=== PATIENT | male | born 1970 | race Caucasian/White ===

== ENCOUNTER 2023-02-06 21:41 | Emergency (ER) | payer BC, SELFPAY ==
[2023-02-06 21:47] VITALS: BP 147/107; PULSE 81; RESP 18; TEMP 36.8; O2SAT 93; BMI 33.5
--- NOTE | 2023-02-06 22:50 | ED_ITS ---
HPI - Chest Pain General Chief Complaint: Chest Pain Stated Complaint: CHEST PAIN Time Seen by Provider: 02/06/23 22:33 Source: patient Mode of arrival: walk-in Limitations: no limitations History of Present Illness HPI narrative: chest pain on and off for the past 5 weeks. xiphoid pain into left chest and into his back. can last up to 30 minutes. Can occur at rest. Does smoke cigarettes. Describes it like a sharp knife going thru. states pain again tonight but now it has resolved and he is asymptomatic Risk Factors Coronary artery disease risk factors: smoking history Related Data Home Medications Medication Instructions Recorded Confirmed No Known Home Medications 02/06/23 02/06/23 Allergies Allergy/AdvReac Type Severity Reaction Status Date / Time No Known Drug Allergies Allergy Verified 02/06/23 21:47 Review of Systems ROS Status of ROS 10 or more systems reviewed and unremarkable except as noted in history and below Cardiovascular Reports: chest pain Exam Constitutional Vital Signs, click to edit/add: Last Vital Signs Temp 98.2 F 02/06/23 21:47 Pulse 81 02/06/23 21:47 Resp 18 02/06/23 21:47 BP 147/107 H 02/06/23 21:47 Pulse Ox 93 L 02/06/23 21:47 O2 Del Method Room Air 02/06/23 21:47 Common normals: no apparent distress, average body habitus, oriented x3 and healthy appearing HENMT Common normals: normocephalic and head/scalp atraumatic Respiratory Common normals: normal respiratory effort and no use of accessory muscles Cardio Common normals: regular rate, regular rhythm, S1 normal heart sound and S2 normal heart sound GI Common normals: Normal to inspection, nondistended, normoactive bowel sounds present, soft to palpation and non-tender Extremity Common normals: normal to inspection, full ROM, normal capillary refill and no joint enlargement Neuro Common normals: oriented x3, CN's II-XII intact bilaterally, moves all e xtremities, no focal motor deficits and no sensory deficits noted Psych Appearance: grossly normal Course Vital Signs Vital signs: Vital Signs Temperature 98.2 F 02/06/23 21:47 Pulse Rate 81 02/06/23 21:47 Respiratory Rate 18 02/06/23 21:47 Blood Pressure 147/107 H 02/06/23 21:47 Pulse Oximetry 93 L 02/06/23 21:47 Oxygen Delivery Method Room Air 02/06/23 21:47 Temperature 98.2 F 02/06/23 21:47 Pulse Rate 81 02/06/23 21:47 Respiratory Rate 18 02/06/23 21:47 Blood Pressure 147/107 H 02/06/23 21:47 Pulse Oximetry 93 L 02/06/23 21:47 Oxygen Delivery Method Room Air 02/06/23 21:47 MDM - Chest Pain MDM Narrative Medical decision making narrative: patient presents with recurrent chest pain over the past 5 weeks. Pain concerning for angina. workup in the ER neg. Patient informed of my concern and recommendation for admission but he refused despite risk of MT. He did stay for 2nd troponin that was normal. Discharged home to follow up with his doctor Lab Data Labs: Lab Results 02/06/23 02/07/23 Range/Units 23:10 01:05 WBC 8.7 (4.0-11.0) 10^3/uL RBC 4.80 (4.70-6.10) 10^6/uL Hgb 16.4 (14.0-18.0) g/dL Hct 46.5 (42.0-54.0) % MCV 96.9 H (80.0-94.0) fL MCH 34.2 H (25.9-34.0) pg MCHC 35.3 H (29.9-35.2) g/dL RDW 11.9 (11.0-15.0) % Plt Count 209 (150-450) 10^3/uL MPV 9.5 (9.5-13.5) fL Neut % (Auto) 54.5 (43.0-75.0) % Lymph % (Auto) 32.4 (20.5-60.0) % [place] % (Auto) 9.9 (1.7-12.0) % Eos % (Auto) 2.0 (0.9-7.0) % Baso % (Auto) 0.9 (0.2-2.0) % Neut # (Auto) 4.7 (1.4-6.5) 10^3/uL Lymph # (Auto) 2.8 (1.2-3.8) 10^3/uL [place] # (Auto) 0.9 H (0.3-0.8) 10^3/uL Eos # (Auto) 0.2 (0.0-0.7) 10^3/uL Baso # (Auto) 0.1 (0.0-0.1) 10^3/uL Abs Immat Gran (auto) 0.03 (0.00-0.03) 10^3/uL Imm/Tot Granulo (auto) 0.3 (0.0-0.5) % D-Dimer <0.19 (<=0.59) mg/L FEU Sodium 137 (136-145) mmol/L Potassium 3.6 (3.5-5.1) mmol/L Chloride 102 (98-107) mmol/L Carbon Dioxide 25.3 (21.0-32.0) mmol/L Anion Gap 13.3 BUN 15.0 (7.0-18.0) mg/dL Creatinine 1.10 (0.70-1.30) mg/dL Est GFR ( Amer) >60 (>=60) Est GFR (Non-Af Amer) >60 (>=60) BUN/Creatinine Ratio 13.6 Glucose 92 (74-106) mg/dL Calcium 8.8 (8.5-10.1) mg/dL Total Bilirubin 0.5 (0.2-1.0) mg/dL AST 21 (15-37) U/L ALT 49 (16-63) U/L Alkaline Phosphatase 73 (46-116) U/L Troponin I High Sens 6.6 6.3 (4.0-76.1) pg/mL NT-Pro-B Natriuret Pep 39.0 (<=900.0) pg/mL Total Protein 6.8 (6.4-8.2) g/dL Albumin 3.9 (3.4-5.0) g/dL Globulin 2.9 g/dL Albumin/Globulin Ratio 1.3 Lipase 243.0 (73.0-393.0) U/L Discharge Plan Discharge Chief Complaint: Chest Pain Clinical Impression: Chest pain Patient Disposition: Home, Self-Care Prescriptions / Home Meds: No Action No Known Home Medications Instructions: Chest Pain (ED) Additional Instructions: follow up with your family doctor next week Stand Alone Forms: Portal Instructions Referrals: MATTHEW RICCI [Primary Care Provider] - 1 week
--- NOTE | 2023-02-06 22:53 | XR_ITS ---
The [address] [address] Patient Name: SHANE GONZALEZ MRN: [id number] date: 1970 Sex: M Assigned Patient Location: ER Current Patient Location: ER Accession/Order Number: [id number] Exam Date: 02/06/2023 23:10 Report Date: 02/06/2023 23:50 At the request of: DAVID BOWSER Procedure: XR chest 1V EXAM: XR chest 1V HISTORY: chest pain COMPARISON: None. TECHNIQUE: AP view of the chest. FINDINGS: There is no focal airspace consolidation. The cardiomediastinal silhouette is not enlarged. No evidence of pleural effusion or pneumothorax are identified. No acute osseous abnormality. XR/XR chest 1V IMPRESSION: No acute cardiopulmonary process. Electronically authenticated by: JOCELIN GOMES Date: 02/06/2023 23:50
--- NOTE | 2023-02-06 22:53 | ECG_ITS ---
The [facility] Test Date: 2023-02-06 Pat Name: SHANE GONZALEZ Department: Room: - Gender: Male Manager Clinical Services: : 1970 Requested By: MATTHEW RICCI Order Number: [id number] Reading MD: BECCA BEASLEY Measurements Intervals [employer] Rate: 78 P: 25 IL: 142 QRS: 6 QRSD: 100 T: 34 QT: 384 QTc: 417 Interpretive Statements 1100 Sinus rhythm 9110 normal ECG No previous ECG available for comparison Electronically Signed On 02-07-2023 14:35:08 EDT by BECCA BEASLEY
[2023-02-06 23:25] LABS: Basophils Absolute Auto 0.1 10^3/uL (0.0-0.1); Basophils Percent Auto 0.9 % (0.2-2.0); Eosinophils Absolute Auto 0.2 10^3/uL (0.0-0.7); Hematocrit 46.5 % (42.0-54.0); Hemoglobin 16.4 g/dL (14.0-18.0); Immature Granulocytes Abs Auto 0.03 10^3/uL (0.00-0.03); Immature Granulocytes Pct Auto 0.3 % (0.0-0.5); Lymphocytes Absolute Auto 2.8 10^3/uL (1.2-3.8); Lymphocytes Percent Auto 32.4 % (20.5-60.0); Mean Corpuscular HGB Conc 35.3 g/dL (29.9-35.2); Mean Corpuscular Hemoglobin 34.2 pg (25.9-34.0); Mean Corpuscular Volume 96.9 fL (80.0-94.0); Mean Platelet Volume 9.5 fL (9.5-13.5); Monocytes Absolute Auto 0.9 10^3/uL (0.3-0.8); Monocytes Percent Auto 9.9 % (1.7-12.0); Neutrophils Absolute Auto 4.7 10^3/uL (1.4-6.5); Neutrophils Percent Auto 54.5 % (43.0-75.0); Platelet Count 209 10^3/uL (150-450); Red Cell Distribution Width 11.9 % (11.0-15.0); White Blood Count 8.7 10^3/uL (4.0-11.0)
[2023-02-06 23:49] LABS: Alanine Aminotransferase 49 U/L (16-63); Albumin Globulin Ratio 1.3; Albumin Level 3.9 g/dL (3.4-5.0); Alkaline Phosphatase 73 U/L (46-116); Anion Gap 13.3; Aspartate Amino Transferase 21 U/L (15-37); BUN Creatinine Ratio 13.6; Bilirubin Total 0.5 mg/dL (0.2-1.0); Calcium 8.8 mg/dL (8.5-10.1); Carbon Dioxide 25.3 mmol/L (21.0-32.0); Chloride 102 mmol/L (98-107); Estimated GFR (African America >60 (>=60); Estimated GFR (Non-African Ame >60 (>=60); Globulin 2.9 g/dL; Glucose 92 mg/dL (74-106); Potassium 3.6 mmol/L (3.5-5.1); Sodium 137 mmol/L (136-145); Total Protein 6.8 g/dL (6.4-8.2); Troponin I High Sensitivity 6.6 pg/mL (4.0-76.1)
[2023-02-07 00:18] LABS: D Dimer <0.19 mg/L FEU (<=0.59)
[2023-02-07 01:46] LABS: Troponin I High Sensitivity 6.3 pg/mL (4.0-76.1)
== END 2023-02-07 02:23 | disposition home or self-care (01) ==
PROVIDERS: Emergency Provider Internal Medicine; PCP Family Medicine
DX: R07.9 Chest pain, unspecified (principal); F17.210 Nicotine dependence, cigarettes, uncomplicated
CPT/HCPCS: 36415; 71045; 80053; 83690; 83880; 84484; 85025; 85378; 93005; 99285

== ENCOUNTER 2024-04-26 08:23 | Outpatient (OUT) | payer BC, SELFPAY ==
--- NOTE | 2024-04-26 | XR_ITS ---
The [address] [address] Patient Name: SHANE GONZALEZ MRN: [id number] date: 1970 Sex: M Assigned Patient Location: Current Patient Location: Accession/Order Number: [id number] Exam Date: 04/26/2024 08:34 Report Date: 04/26/2024 10:15 At the request of: DAYNE KIM Procedure: XR foot LANDON min 3V EXAMINATION: XR foot LANDON min 3V HISTORY: BILATERAL FOOT PAIN COMPARISON: No relevant comparison available. FINDINGS: RIGHT FINDINGS: BONES: Partial flattening of the plantar arch. No acute fracture or dislocation. Moderate calcaneal plantar enthesopathic spurring SOFT TISSUES: Negative. No visible soft tissue swelling. OTHER: Negative. LEFT FINDINGS: BONES: Partial flattening of the plantar arch. No acute fracture or dislocation. Moderate calcaneal plantar enthesopathic spurring SOFT TISSUES: Negative. No visible soft tissue swelling. OTHER: Negative. XR/XR foot LANDON min 3V IMPRESSION: Partial flattening of the plantar arch with degenerative change Electronically authenticated by: ELO COYLE Date: 04/26/2024 10:15
== END 2024-04-26 08:24 | disposition home or self-care (01) ==
LOC: EC 08:24
PROVIDERS: PCP Family Medicine; Visit Provider Podiatrist Foot & Ankle Surgery
DX: M79.672 Pain in left foot (principal); M79.671 Pain in right foot
CPT/HCPCS: 73630

== ENCOUNTER 2024-06-03 20:54 | Emergency (ER) | payer BC, SELFPAY ==
[2024-06-03 20:57] VITALS: BP 161/108; PULSE 96; TEMP 36.6; O2SAT 98; BMI 36.5
--- NOTE | 2024-06-03 21:09 | XR_ITS ---
The [address] [address] Patient Name: SHANE GONZALEZ MRN: [facility]:[id number] date: 1970 Sex: M Assigned Patient Location: ER Current Patient Location: ER Accession/Order Number: [id number] Exam Date: 06/03/2024 09:35 Report Date: 06/03/2024 23:40 At the request of: AVA CHAMBERS Procedure: XR knee LANDON 3V HISTORY: fall COMPARISON: There are no previous studies available for comparison. TECHNIQUE: 3 views of the bilateral knees. FINDINGS: BONE DENSITY: Normal. JOINTS: No acute abnormality. 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 FRACTURE: No acute fracture. DISLOCATION: None. SOFT TISSUES: No radiopaque foreign body. XR/XR knee LANDON 3V IMPRESSION: No acute osseous or joint abnormality. Electronically authenticated by: PAOLA ALVAREZ Date: 06/03/2024 23:40
--- NOTE | 2024-06-03 21:09 | XR_ITS ---
The [address] [address] Patient Name: SHANE GONZALEZ MRN: [facility]:[id number] date: 1970 Sex: M Assigned Patient Location: ER Current Patient Location: ER Accession/Order Number: [id number] Exam Date: 06/03/2024 09:35 Report Date: 06/03/2024 23:37 At the request of: AVA CHAMBERS Procedure: XR foot LANDON min 3V HISTORY: fall COMPARISON: 04/26/2024. TECHNIQUE: 3 views of the bilateral feet. FINDINGS: BONE DENSITY: Normal. Bilateral plantar calcaneal spurs. JOINTS: No acute abnormality. FRACTURE: No acute fracture. DISLOCATION: None. SOFT TISSUES: No radiopaque foreign body. XR/XR foot LANDON min 3V IMPRESSION: No acute osseous or joint abnormality. Electronically authenticated by: PAOAL ALVAREZ Date: 06/03/2024 23:37
--- NOTE | 2024-06-03 21:09 | XR_ITS ---
The [place] [id number] Patient Name: SHANE GONZALEZ MRN: [facility]:[id number] date: 1970 Sex: M Assigned Patient Location: ER Current Patient Location: ER Accession/Order Number: [id number] Exam Date: 06/03/2024 09:35 Report Date: 06/03/2024 23:38 At the request of: AVA CHAMBERS Procedure: XR lumbar spine 2-3V LUMBAR X-RAY. HISTORY: fall COMPARISON: None. TECHNIQUE: 3 views radiograph of the lumbar spine. FINDINGS: No acute vertebral body compression fracture. There is mild multilevel degenerative spondylosis. Maintained lumbar lordosis. There is grade 1 retrolisthesis at L4-5 without obvious spondylolysis. XR/XR lumbar spine 2-3V IMPRESSION: No acute abnormality of the lumbar spine. Electronically authenticated by: PAOLA ALVAREZ Date: 06/03/2024 23:38
--- NOTE | 2024-06-03 21:10 | XR_ITS ---
The [address] [address] Patient Name: SHANE GONZALEZ MRN: [id number] date: 1970 Sex: M Assigned Patient Location: ER Current Patient Location: ER Accession/Order Number: [id number] Exam Date: 06/03/2024 09:35 Report Date: 06/03/2024 23:35 At the request of: AVA CHAMBERS Procedure: XR ankle LANDON min 3V HISTORY: pain COMPARISON: There are no previous studies available for comparison. TECHNIQUE: 3 views of the bilateral ankle. FINDINGS: BONE DENSITY: Normal. Bilateral plantar calcaneal spur. JOINTS: No acute abnormality. FRACTURE: No acute fracture. DISLOCATION: None. SOFT TISSUES: No radiopaque foreign body. XR/XR ankle LANDON min 3V IMPRESSION: No acute osseous or joint abnormality. Electronically authenticated by: PAOLA ALVAREZ Date: 06/03/2024 23:35
--- OUTSIDE RECORDS SUMMARY | 2024-06-03 21:13 | XMS_ITS | CCD ---
Author Organization [facility] Inform ion Partnership [facility] Care Team Providers Care Professor Of Exercise Science Name Role Phone Romy Connors Attending Unavailable SHANON PADRON Attending Unavailable DAYNE PARDO Referring Unavailable Unavailable Primary Care Provider Unavaillina overton Problems Problem Classification Problem Date Documented Da te Episodic/Chronic Other connective tissue disease (1 source) Pain in left foot; Translations: [Pain in left foot] 05-03-2024 Episodic Other connective tissue disease (1 source) Pain in right foot; Translations: [Pain in right foot] 05-03-2024 Episodic Results Test Name Value Interpretation Reference Range [facility] Lab - Toxicology Resultson 1 08-02-2018 Lab - Toxicology Results [id number] [facility] Encounters Encounter Date Encounter Type Care Provider Facility Start: 05-03-2024 End: 05-03-2024 ambulatory SHANON PADRON [facility] Comment on above: Left foot pain (Prim jeremy Dx); Right foot pain Start: 05-03-2024 End: 05-03-2024 Bamboo flowsheet Shanon Padron PT Work Phone: [facility] Start: 05-03-2024 End: 05-03-2024 Bamboo flowsheet Shanon Padron PT Work Phone: [facility] Start: 12-05-2022 ambulatory Romy Connors Facili ty:[facility] Plan of Treatment Date Care Activity Detail Author Start: 05-05-2024 End: 05-05-2024 ambulatory 05/05/2024 5:30 PM EDT Treat ment [facility] [address] [place] [address] Shanon Padron, PT [address] [place] [address] [facility] Start: 05-03-2024 End: 05-03-2024 ambulatory 05/03/2024 5:30 PM EDT Evalu ation [facility] [address] [place] [id number] Shanon Padron, PT [address] [place] [address] Arrived [facility] Comment on above: Arrived Payers Date Payer Category Payer Unknown BCBS BCBS [id number] 2022-Present [phone] [address] [place] [address] [id number] 2022 Unknown [id number] 1970 Unknown [id number] 1970 Unknown [id number] Unknown [id number] Social History Date Type Detail Facility Tobacco smoking stat [facility] Tobacco smoking consumption unknown [facility] Healthcare Start: 1970 Sex assigned at Not on file [facility] Gender identity Not on file [facility] are History of Present illness Narrative 05-03-2024 Shanon Padron, PT - 05/03/2024 5:30 PM EDT Note Date & Type Note Facility 05-03-2024 History of Presen t illness Narrative Physical Therapy Physical Therapy Evaluation Visit Patient Name: Vishal Hazel Today's Date: 05/03/2024 Reason: Left > Right foot pain Visit number: 1 Subjective: Interim History: Vishal is a 53 yo male that presents today with left>right foot pain. Onset ~6 weeks prior. No specific DANE. Left side was much worse. Recently was to the point he had severe pain with any amount of weightbearing through the left heel. Radiograph showed small spurs per report. Treatment has included prednisone, and anti-inflammatory which have improved symptoms ~85% so far. He is pleased with this. Has also been complaint with new orthotic (power step), and HEP from Dr Pardo. Pain: Pain is through the left mid substance of longitudinal arch, along the 5th metatarsal, and achilles insertion. Same on the right but much more mild. 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 Precautions: as tolerated Objective: ANKLE AROM: B ankles normal all planes Strength: B ankles 5/5 MMT globally Muscle length: Decreased gastroc, soleus, HS bilaterally Palpation: TTP left achilles insertion, longitudinal arch Functional: Gait is normal Treatment: Education: HEP education with demonstration, Educated on Eval Findings and POC Manual Therapy: STM, IASTM, cupping, dry needling Therapeutic Exercise: flexibility of calf/HS/hips, strength Aquatic Therapy: if needed Neuromuscular re-education: balance Modalities: estim, heat, ice Today: IE; ther ex for HEP including HS 90-90, wall HS stretch, hip ER stretch, standing calf stretch. Advised to continue stretches daily. Given he is doing well with the medications, inserts, and HEP =he will try to self manage. Return to PT within 30 days if symptoms return. Assessment: Goal 1: Pt will report >95% improvement in current symptoms. Goal 2: Pt will demo normal gait, no pain Goal 3: Pt will have no TTP B achilles insertion Pt will benefit from skilled PT to address the above impairments for 2x/week for 4-6 weeks. Will hold PT with current HEP unless symptoms worsen, he can return within 30 days. I hereby deem this POC medically necessary. Please sign below. Date: documented in this encounter [facility] Evaluation note Note Date & Type Note Facility Evaluation note Diagnosis Left foot pain- Primary Pain in soft tissues of limb Right foot pain Pain in soft tissues of limb documented in this encounter [facility] Summary Purpose Family History No Family History Records FoundNo Family History Records FoundNo Family History Records Found Advance Directives No Advanced Directives Records FoundNo Advanced Directives Records FoundNo Advanced Directives Records Found Additional Source Comments (unrecognized sect ion and content) No Status Records FoundNo Status Records FoundNo Status Records Found INFORMATION SOURCE (unrecogn ized section and content) DATE CREATED AUTHOR 06/02/2019 [facility] DATE CREATED AUTHOR AUTHOR'S ORGANIZ ATION 12/03/2022 [facility] DATE CREATED AUTHOR AUTHOR'S ORGANIZ ATION 05/05/2024 [facility] EPIC Reason for Visit (unrecogniz ed section and content) Specialty Diagnoses / Procedures Referred By Joelle pedraza Referred To Contact Physical Therapy Diagnoses Metatarsalgia, left foot Procedures IA PHYS THERAPY EVALUATION Dayne Pardo MD [address] [place] [address] [place] [address] Arie Xiao, FACUNDO Referral ID Status Reason Start Date Expiration Date V isits Requested Visits Authorized [id number] Authorized 04/26/2024 10/23/2024 99 99 FOR RECORDS PERTAINING TO PATIENTS WHO ARE OR HAVE BEEN ENROLLED IN A CHEMICAL DEPENDENCY/SUBSTANCEABUSE PROGRAM, SOME INFORMATION MAY BE OMITTED. This clinical summary was aggregated from multiple sources. Caution should be exercised in using it in the provision of clinical care. This summary normalizes information from multiple sources, and as a consequence, information in this document may materially change the coding, format and clinical context of patient data. In addition, data may be omitted in some cases. CLINICAL DECISIONS SHOULD BE BASED ON THE PRIMARY CLINICAL RECORDS. [facility]. provides no warranty or guarantee of the accuracy or completeness of information in this document.
--- NOTE | 2024-06-03 22:04 | ED.FALL1 ---
HPI HPI - Fall General Chief Complaint: Fall Stated Complaint: LEG PAIN, FELL OUT OF TREE STAND Time Seen by Provider: 06/03/24 21:09 Source: patient Mode of arrival: walk-in Limitations: no limitations History of Present Illness HPI Narrative: fell from tree stand. States tree stand 12-14 ft up. States strap broke . He was standing and landed on his heels. Able to get up and sat in chair while continuing to leija. Accident occurred about 5 hours ago. Denies any back or hip pain. Complains of pain of his heels, ankles and knees. Demonstrates full extension and flexing of his knees but more uncomfortable with the right knee. No injury to back , neck or head. Related Data Home Medications ?Medication ?Instructions ?Recorded ?Confirmed meloxicam 15 mg tablet 15 mg PO DAILY 06/03/24 06/03/24 Allergies Allergy/AdvReac Type Severity Reaction Status Date / Time No Known Drug Allergies Allergy Verified 06/03/24 21:05 Opioid HPI Opioid Management Most Recent Pain and Opioid Data: No Data to Display Review of Systems ROS Status of ROS 10 or more systems reviewed and unremarkable except as noted in history and below PFSH PFSH Social History Little interest or pleasure in doing things: not at all Feeling down, depressed, or hopeless: not at all Exam Constitutional Vital Signs, click to edit/add: Last Vital Signs Temp 98 F 06/03/24 20:57 Pulse 92 H 06/03/24 23:20 Resp 18 06/03/24 20:57 BP 132/93 H 06/03/24 23:20 Pulse Ox 96 06/03/24 23:20 O2 Del Method Room Air 06/03/24 20:57 Common normals: no apparent distress, average body habitus, oriented x3, no limitations, healthy appearing, alert and well nourished [facility] Common normals: normocephalic and head/scalp atraumatic Chest Common normals: inspection of chest normal and palpation of chest normal Respiratory Common normals: normal respiratory effort, no retractions, no use of accessory muscles and clear to auscultation bilaterally Cardio Common normals: regular rate, regular rhythm, S1 normal heart sound and S2 normal heart sound GI Common normals: Normal to inspection, nondistended, normoactive bowel sounds present and soft to palpation Back & Pelvis Common normals: thoracic and lumbar spine normal to inspection and no thoracic nor lumbar tenderness Extremity Other: no gross abnormality of his knees. mild effusion right knee. No deformity of ankles or feet Neuro Common normals: oriented x3, CN's II-XII intact bilaterally, moves all extremities and no focal motor deficits Psych Appearance: grossly normal Course Vital Signs Vital signs: Vital Signs Temperature 98 F 06/03/24 20:57 Pulse Rate 96 H 06/03/24 20:57 Respiratory Rate 18 06/03/24 20:57 Blood Pressure 161/108 H 06/03/24 20:57 Pulse Oximetry 98 06/03/24 20:57 Oxygen Delivery Method Room Air 06/03/24 20:57 Temperature 98 F 06/03/24 20:57 Pulse Rate 92 H 06/03/24 23:20 Respiratory Rate 18 06/03/24 20:57 Blood Pressure 132/93 H 06/03/24 23:20 Pulse Oximetry 96 06/03/24 23:20 Oxygen Delivery Method Room Air 06/03/24 20:57 MDM - Fall MDM Narrative Medical decision making narrative: patient fell out of a tree stand. he was standing when the strap broke and he landed on his heels. Fell 12-14 feet. complained of heel, ankle and knee pain. No deformity of any of his joints and mild effusion right knee. xrays all neg. Patient informed of the xray results and working diagnosis . given dose of prednisone and discharged home Imaging Data Chest x-ray: Radiologist's impression: ITS Impressions Foot X-Ray 06/03/24 21:09 IMPRESSION: No acute osseous or joint abnormality. Electronically authenticated by: PAOLA ALVAREZ Date: 06/03/2024 23:37 Knee X-Ray 06/03/24 21:09 IMPRESSION: No acute osseous or joint abnormality. Electronically authenticated by: PAOLA ALVAREZ Date: 06/03/2024 23:40 Lumbar Spine X-Ray 06/03/24 21:09 IMPRESSION: No acute abnormality of the lumbar spine. Electronically authenticated by: PAOLA ALVAREZ Date: 06/03/2024 23:38 Ankle X-Ray 06/03/24 21:10 IMPRESSION: No acute osseous or joint abnormality. Electronically authenticated by: PAOLA ALVAREZ Date: 06/03/2024 23:35 Discharge Plan Discharge Chief Complaint: Fall Clinical Impression: Contusion of foot or heel, Ankle strain, Knee strain Patient Disposition: Home, Self-Care Prescriptions / Home Meds: No Action meloxicam 15 mg tablet 15 mg PO DAILY Print Language: Zambian Instructions: Foot Contusion (ED), Ankle Strain (ED) Additional Instructions: follow up with your doctor next week for recheck. Continue mobic for pain Referrals: MATTHEW RICCI [Primary Care Provider] - 1 week
[2024-06-03 23:20] VITALS: BP 132/93; PULSE 92; O2SAT 96
[2024-06-04] MEDS: PREDNISONE 20 MG TABLET 40 MG PO (00:11)
[2024-06-04] MEDS: HYDROCODONE/ACET 5-325 MG TABLET 2 TAB PO (00:31)
== END 2024-06-04 00:34 | disposition home or self-care (01) ==
PROVIDERS: Emergency Provider Internal Medicine; PCP Family Medicine
DX: S86.911A Strain of unspecified muscle(s) and tendon(s) at lower leg level, right leg, initial encounter (principal); S96.912A Strain of unspecified muscle and tendon at ankle and foot level, left foot, initial encounter; S96.911A Strain of unspecified muscle and tendon at ankle and foot level, right foot, initial encounter; S90.32XA Contusion of left foot, initial encounter; S90.31XA Contusion of right foot, initial encounter; W17.89XA Other fall from one level to another, initial encounter
CPT/HCPCS: 72100; 73562; 73610; 73630; 99283; J7512

== ENCOUNTER 2025-07-08 09:48 | Outpatient (OUT) | payer SELFPAY ==
--- OUTSIDE RECORDS SUMMARY | 2025-06-28 16:00 | XMS_ITS | Encounter Summary ---
Author Organization [facility] Address [address] [place] [address] Care Team Providers Care Representative Name Role Phone Dirk Jeffers DO Primary Care Provider [phone] Reason for Visit * Consultation (Stat) - ClosedSpecialtyDiagnoses / ProceduresReferred By Contact Referred To ContactPhysical Therapy Diagnoses Primary osteoarthritis of left hip Procedures [place] OFFICE/OUTPATIENT NEW HIGH MDM 60 MINUTES Jan Park DO [address] [place] [address] Phone: tel: fax: Nathalie Ybarra PT Referral IDStatusReasonStart DateExpiration DateVisits RequestedVisits [id number] Specialty Services Required / Encounter Details DateTypeDepartmentCare Team (Latest Contact Info)Gankfdypoof18/03/2025 4:00 PM ESTEvaluation [facility] [address] [facility] [address] [place] [id number] Nathalie Ybarra PT Arthritis of left hip (Primary Dx) Social History Tobacco UseTypesPacks/DayYears UsedDateSmoking Tobacco: NeverSmokeless Tobacco: CurrentChewAlcohol UseStandard Drinks/WeekCommentsYes0 (1 standard drink = 0.6 oz pure alcohol)Sex and Gender InformationValueDate RecordedSex Assigned at BirthNot on fileLegal QziEyxk9110/08/2022 6:42 PM EDTGender IdentityNot on file Sexual OrientationNot on filedocumented as of this encounter Progress Notes * Nathalie Ybarra, PT - 06/28/2025 4:00 PM EST Images from the original note were not included. Physical Therapy Physical Therapy Evaluation Visit Patient Name: Vishal Hazel Today's Date: 06/28/2025 Reason: Prehab prior to left Total Hip Arthroplasty on 07/11/25. Visit number: 1 Subjective Interim History: Vishal Hazel is a 54 y.o. male that presents today for prehab prior to left Total Hip Arthroplasty scheduled for 07/11/25. he has had ongoing pain and has elected to proceed withTHA. Imaging: Radiograph indicates severe OA of left hip. Prior Level of Function: Lives in a 2 story home with 0 JAVIER. Currently has walker at home. Precautions: posterior hip precautions Objective: left Hip ROM: Flexion- 92 degrees Abduction- 37 degrees Gait: ambulates independently with wide KEKE Treatment: Therapeutic Exercise: x4 minutes review of pre- and post-op therapeutic exercise and their purpose including improved blood flow, muscle activation, ROM, and strength. Education: Educated pt on STACEY precautions, proper leg elevation technique. Educated on s/s of bloodclots, DVT. Educated on the importance of rest/ice in the immediate post op stage to promote tissuehealing. Educated on potential buckling of knee post op and to be cautious with each step and use FWW as prescribed. Gait Training: x10 minutes of gait training including education and practice using a FWW and SPC onflat ground, and stairs as appropriate to prepare for home navigation post op. Eductaed pt how to fit walker to proper height. Assessment: Goal 1: Patient will demo proper gait with proper assistive device for post op mobility. - MET Goal 2: Patient will report no further questions regarding post op mobility, safe home negotiation,or PT plan. -MET Goal 3: Pt will verbalize and demo understanding of STACEY precautions. - MET Pt will be discharged following today's 1x visit. Met goals. does not need a FWW for post op gait, mobility. I hereby deem this POC medically necessary. Please sign below. __ Date: documented in this encounter Plan of Treatment DateTypeDepartmentCare Team (Latest Contact Info)Hgwhepkfjcy86/12/2026 10:45 AM ESTOffice Visit [facility] [address] [place] [phone] Jan Park DO [address] [place] [address] documented as of this encounter Visit Diagnoses Diagnosis Arthritis of left hip- Primary documented in this encounter Care Teams Team MemberRelationshipSpecialtyStart DateEnd Date Dirk Jeffers DO [address] [facility] [place] [phone] PCP - GeneralInternal Medicine03/06/25documented as of this encounter
--- OUTSIDE RECORDS SUMMARY | 2025-07-07 05:22 | XMS_ITS | Continuity of Care Document ---
Author Organization [facility] Address [address] [place] [address] Phone Care Team Providers Care Cabinetmaker Maintenance Name Role Phone Dirk Jeffers DO Primary Care Provider Dirk Jeffers DO Attending Provider [phone] Care Teams Patient Care Team Team Status: Active Member Role/Relationship Status Dates Dirk Jeffers DO Primary Care Provider Active Patient Care Team Team Status: Inactive Member Role/Relationship Status Dates Dirk Jeffers DO Primary Care Provider Active Start: July 07, 2025 End: July 07enjaamber Jeffers DOAttending ProviderActiveStart: July 07, 2025 End: July 07, 2025 Chief Complaint and Reason for Visit Chief Complaint Admit Date Wellness July 07, 2025 9:33am Reason for Visit Admit Date DEANNA (generalized anxiety disorder) Decem 2024 9:33am Hypercholesterolemia July 07, 2025 9:33am Lumbar spondylosis July 07, 2025 9:33am Nicotine addiction July 07, 2025 9:33am Primary osteoarthritis of left hip Decem 2024 9:33am Screening PSA (prostate specific antigen ) July 07, 2025 9:33am Wellness examination July 07, 2025 9:33am Allergies, Adverse Reactions, Alerts Allergen Type Severity Reaction Last Updated Verified Status No Known Allergies Allergy Unknown July 07, 2025 9:42amYesActive Social History Smoking Status Status Start Date End Date Date of Observa tion Ex-smoker (finding) March 03, 2025 2:30pm Observation Status Observation Response Date of Response Legal Sex Male (finding) Sex Assigned At BirthMaleDmb1969 Family History Relationship Condition Age at Onset Recorded Date/T rohith Not Specified Malignant neoplasm Unknown motherHeart diseaseUnknownDiabetes mellitusUnknownfatherMalignant neoplasm of colonUnknown Problems Active Problems Problem Diagnosis/Recorded Date Onset Date Status C omments Nicotine addiction July 04, 2025 7:20am Unknown Ac tive DEANNA (generalized anxiety disorder)June 29, 2024 10:24pmUnknownActive Screening PSA (prostate specific antigen)June 29, 2024 10:24pmUnknownActive PSA: 1.7 - 12/4Primary osteoarthritis of left hipSept2024 5:02pm UnknownActivePrimary osteoarthritis of both kneesDece2023 10:25pm UnknownActiveWellness examinationDece2023 7:27amUnknownActive HypercholesterolemiaJuly 04, 2025 7:23amUnknownActiveLumbar spondylosis April 10, 2025 5:04pmUnknownActiveObesityDemarlette [facility] hospital2023 10:25pmUnknown ActiveInactive/Resolved Problems Problem Diagnosis/Recorded Date Onset Date Status C omments Acute pain of right hip March 03, 2025 2:09pm Unknown Resolved Degenerative disc diseaseAu2024 2:08pmUnknownResolved Medications Medication Status Dose Units Route Directions Qty Days Refills S tart Date Stop Date End Date Reason(s) Instructions Adherence Peg 3350-Electrolytes (Golytely) 236-22.74-6.74 -5.86 gram recon soln Active 240 ML PO Once 4000 1 0 July 01, 2024 12:00am At 4pm add lukewarm drinking water to the fill adalberto on the jug, secure cap on the jug and shake vigorously to mix. Begin drinking until you finish entire contents.Complies with drug therapyMeloxicam 15 mg nrooguEowvlsisfdom62SRZXUigrh 18712Uftsrdbo2023 1:14pmAugust 2024 1:34pmSildenafil 100 mg tablet Eovtthezgxna4IAOclyk as needed for sexual madtgjma37834Onqnhjhl 27th, 2024 12:00amJanuary 2024 3:79zp20-100ej orally daily PRN; administer 30 minutes to 4 hours before activitySildenafil 100 mg ewvtqmVtwkur2CJSxfjl as needed for sexual rmgyywyn22500Pzrtrum 2024 3:65bb76-306pl orally daily PRN; administer 30 minutes to 4 hours before activityComplies with drug therapy Lidocaine (Lidoderm) 5 % adhesive patch,dcpfshjtiYdfgpt8TAHQALXGSVKSP27K as needed for jtox081Mnhvrv 2024 12:31pmleave on most painful area for up to 12 hrsComplies with drug therapyMeloxicam 15 mg wmzrreAnzocgdahlry57YGPCZuhzs72 302August 2024 1:33pmNovember 2024 8:20amMeloxicam 15 mg tabletActive 17FTFTPsttj15808Htugexkg 2024 8:20amComplies with drug therapyHydrocodone- Acetaminophen 5-325 mg ehtyutHpbmgi3LVBUISBXEW 4-6 HOURS as needed for sbrb7155 March 03ute pain of right hip Degeneration of intervertebral disc Pain in right hipComplies with drug therapyCyclobenzaprine 10 mg oyylzyWyemkl63 MGPOEvery 12 yvywo644Tdgwbf 2024 11:00pmComplies with drug therapyLidocaine (Lidoderm) 5 % adhesive patch,vlcomtifyZwpwhkvrdrlj4WUQCWBQWFBDVE58U as needed for wlyd954Gkvuxs 2024 11:00pmAugust 2024 12:31pmleave on most painful area for up to 12 hrsMeloxicam 15 mg hzvyusJeddfeudhuce06HGDNHxgpe June 29, 2024 12:00amDecember 2023 4:16pmCalcium Carbonate 600 mg calcium (1,500 mg) xzxpwfFivvgh6058CKEDFvfonAzcgngfe 4th, 2024 12:00amComplies with drug epqabwcDlushvlg-Ral-Bqjxc-Vit K-Lycop (Men's Multivitamin) 200-60-600 mcg nzlwgrLzxtfb8PHFLQZvjrdGkorjpuv 4th, 2024 12:00amComplies with drug therapy Glucosamine-Chondroitin (Osteo Bi-Flex) 250-200 mg hbagkfPrkpuq9WZMLSEnmnt times dailyDece2023 12:00amgive after food/mealComplies with drug therapy [place]-3 Fatty Acids 500 mg pfheirnMlumon953IGAXYkztlHnqcwrio 4th, 2024 12:00am Complies with drug tuqszdsAwn45 (Ubiquinol) (Qunol Kaden Coq10) 100 mg capsule Wrssli107OYNNEzlwv dailyDece2023 12:00amComplies with drug therapy Meloxicam 15 mg fmjxtzInqfgttrjpqb13MSLUSnpnk38676Rckihscg 4th, 2024 4:12pm July 22, 2024 1:18pm Vital Signs Vital Reading Result Reference Range Collection Date/Time Height 68 [in_i] July 07, 2025 9:11weJdjxyr77.48 kgDece2024 9:47amHeart Rate80 /mcz38-508NaddmfjhJuly 07, 2025 9:47amRespiratory rate12 /lvf33-63PofqtdgxJuly 07, 2025 9:47amBP Tzaivizi273 mm[Hg]100-140July 07, 2025 9:47amBP Mbmdstkhf04 mm[Hg]60-100Dece2024 9:47amBMI (Body Mass Index)33.0 kg/y8Huvuxugh2024 9:47am Advance Directives Advance Directive Response Recorded Date/ Time Advance Directives No May 9:34am Insurance Providers Guarantor Vishal Ilir Address [address] [facility] [address]Hqcqbsz Info.Home Phone: Coverage Status Update:2024 Payer Group Member ID Coverage Type Subscriber Relationship to Subscriber Effective Date Expiration Date Richy FATIMA [id number] [place] Id: [id number] [address] [facility] [address] Home Phone: Email: [email or web address] Encounters Encounter Location(s) Arrival/Admit Date Discharge/Departure Date Discharge/Departure Disposition Provider(s) Departed Physician/ Provider Office Visit -[facility] July 07, 2025 9:33am July 07, 2025 10:21am Discharged to home care or self care (routine discharge) Dirk Jeffers DO Recent Diagnosis Onset Date Admit Date DEANNA (generalized anxiety disorder) Unknown July 07, 2025 9:33am Hypercholesterolemia Unknown July 072024 9:33am Lumbar spondylosis Unknown June 9:33am Nicotine addiction Unknown June 9:33am Primary osteoarthritis of left hip Unknown July 07, 2025 9:33am Screening PSA (prostate specific antigen) Unknow n July 07, 2025 9:33am Wellness examination Unknown July 072024 9:33am Assessments Diagnosis Onset Date Resolution Status Admit Date DEANNA (generalized anxiety disorder) acuteDe2024 9:33amHypercholesterolemiaacuteDece2024 9:33amLumbar spondylosisacuteDece2024 9:33amNicotine addictionacute July 07, 2025 9:33amPrimary osteoarthritis of left hipacuteDe2024 9:33amScreening PSA (prostate specific antigen)acuteDe2024 9:33amWellness examinationacuteDe2024 9:33am Plan of Treatment Author [facility]irk Jeffers [facility]20[facility] 10:16amI have instructed this patient to avoid bending, twisting or lifting. I have also instructed on use of intermittent heat and ice as needed. They may schedule a massage or gentle manipulation. I instructed them on the safe use of Tylenol, Lidocaine and stretching exercises. I informed them of alternative modes of treatment for severe pain, which may include referral to physical therapy or pain management. Symptoms resolved gradually and haven't returned. Exhausted conservative treatment Planning left STACEY Instructed on healthy diet and exersise I have recommended yearly PSA testing. I have informed him that the PSA can be elevated w/ cancer, infection and enlarged prostates. I have explained to the patient, that If his PSA is elevated, while there are many causes, referral will be recommended to r/o cancer. He would be referred to Urology, who may recommend an MRI, TRUS/bx or possibly continued monitoring. He is agreeable to this plan of action PSA: 1.7 - 06/2024 I have instructed this patient on the recommended lifestyle changes, which includes a low fat, high fiber diet along with a regular exercise routine. I have also reviewed the recommended age-appropriate preventive testing for this patient. I have also reviewed the recommended vaccines for their age and risk factors. This patient has been encouraged to quit tobacco use immediately. They are aware of the hazards associated with tobacco use, including but not limited to respiratory infections, vascular disease and cancers. Scheduled for yearly LDCT chest for lung cancer screening is recommended. I have instructed this patient on a low fat, high fiber diet and exercise. I have discussed the primary and secondary prevention benefits attributed to lowering LDL cholesterol. I have also discussed the medical treatment of elevated cholesterol, which is based on the 10 year ASCVD risk. Future Tests Future scheduled test information is unavailable Pending Tests Pending diagnostic test information is unavailable Future Visits Future appointment information is unavailable Future Procedures Procedure Name Ordered Date Scheduled Date Lipid Panel July 07, 2025 10:16am PSA Screen (Yearly Only)July 07, 2025 10:16am Future Medications Future medication information is unavailable Patient Instructions Patient instructions are unavailable
--- OUTSIDE RECORDS SUMMARY | 2025-07-08 09:51 | XMS_ITS | CCD ---
Author Organization [facility] Care Team Providers Care Jewel Waxer Name Role Phone Romy Connors Attending Unavailable Unavailable Primary Care Provider Unavaillina e Dirk Jeffers DO Primary Care Provider [phone] Dirk Jeffers DO Attending Provider [phone] Alanna DIOP, Cristina Attending Provider [phone] Dirk Jeffers DO Primary Care Provider [phone] Reese ALLEN, Gael Krueger Emergency Provider [phone] Asachikis, Imchikis Admitting Unavailable Asachikis, Cristina Attending Unavailable Zeyad, Dirk Primary Care Unavailable Gael Leigh Admitting Unavailable Gael Leigh Attending Unavailable Dirk Jeffers Primary Care Unavailable Dirk Jeffers Admitting Unavailable Zeyad, Dirk Attending Unavailable Zeyad, Dirk Primary Care Unavailable Dirk Jeffers DO Primary Care Provider Dirk Jeffers DO Primary Care Provider ZAYRA ARCE Referring Unavailable RENETTA, ZAYRA Diez Attending Unavailable ZAYRA ARCE Referring Unavailable RENETTA, ZAYRA Diez Referring Unavailable RENETTA, ZAYRA Diez Attending Unavailable RENETTA, ZAYRA Diez Referring Unavailable ELO NEGRON Attending Unavailable POCELO LAUREN Referring Unavailable Medications Current Medications MedicationDrug Class(es)DatesSig (Normalized)Sig (Original)calcium carbonate 1500 mg oral tablet (2 sources)Start: 37-84-9397htpq 1 tablet by mouth once dailychondroitin sulfates 200 mg / glucosamine hydrochloride 250 mg oral tablet (2 sources)Start: 21-83-5719nhxb 2 tablets by mouth three times daily at mealtimeStart: 38-43-1455hfin 2 tablets by mouth three times daily at mealtime Glucosamine-Chondroitin (Osteo Bi-Flex) 250-200 mg tablet Active 2 TAB PO Three times daily June 29, 2024 12:00am give after food/meallidocaine 0.05 mg/mg medicated patch (10 sources)Antiarrhythmic, Amide Local AnestheticStart: 87-75-4205wpcbq 1 dose transdermal route every twenty-four hours as needed for painlidocaine (Lidoderm) 5 % patch APPLY 1 PATCH TOPICALLY EVERY 24 HRS NEEDED FOR PAIN *LEAVE ON MOST PAINFUL AREA FOR UP TO 12 HRS 03/03/2025 ActiveMisc Natural Products (OSTEO BI- FLEX ADV DOUBLE ST PO) (5 sources)Misc Natural Products (OSTEO BI-FLEX ADV DOUBLE ST PO) Take by mouth ZssbdiPwdodmob-Jtm-Vbjfg-Vit K-Lycop (Men's Multivitamin) 200-60-600 mcg tablet (2 sources)Start: 68-03-4729ltlz 1 tablet by mouth once dailyStart: 06-29-2024 take 1 tablet by mouth once nfwhwHbjppkor-Ngu-Yraua-Vit K-Lycop (Men's Multivitamin) 200-60-600 mcg tablet Active 1 TAB PO Daily June 29, 2024 12:00amOmega-3 Fatty Acids 500 mg capsule (2 sources)Start: 29-64-3218tzzs 1 capsule by mouth once dailyStart: 06-29-2024 take 1 capsule by mouth once dailyOmega-3 Fatty Acids 500 mg capsule Active 500 MG PO Daily June 29, 2024 12:00ampolyethylene glycol 3350 164955 mg / potassium chloride 2970 mg / sodium bicarbonate 6740 mg / sodium chloride 5860 mg / sodium sulfate 56691 mg powder for oral solution (2 sources)Osmotic LaxativeStart: 55-22-1265eicn 1 capsule by mouth once sildenafil 100 mg oral tablet (4 sources)Phosphodiesterase 5 InhibitorStart: 74-68-7119Ggbgu: 07-22-2024 End: 31-66-9266Nynauswqia 100 mg tablet Discontinued 0 PO Daily as needed for sexual activity June 1:00am August 26, 2024 4:18pm 50- 100mg orally daily PRN; administer 30 minutes to 4 hours before activity ubiquinol 100 mg oral capsule (2 sources)Start: 36-43-9563hgpx 1 capsule by mouth twice daily Completed/Discontinued Medications MedicationDrug Class(es)DatesSig (Normalized)Sig (Original)acetaminophen 325 mg / HYDROcodone bitartrate 5 mg oral tablet (6 sources)Opioid AgonistStart: 03-03-2025 End: 01-03-3381bpxm 1 tablet by mouth every four to six hours as needed for pain HYDROcodone-acetaminophen (Freeman) 5-325 MG tablet TAKE 1 TABLET BY MOUTH EVERY 4-6 HOURS NEEDED FOR PAIN FOR 3 DAYS 03/03/2025 04/10/2025 Discontinued (Therapy completed)cyclobenzaprine hydrochloride 10 mg oral tablet (10 sources)Muscle RelaxantStart: 03-03-2025 End: 83-41-6903komo 1 tablet by mouth every twelve hourscyclobenzaprine (Flexeril) 10 MG tablet Take 10 mg by mouth every 12 (twelve) hours 03/03/2025 05/19/2025 DiscontinuedStart: 26-03-9088mepg 1 tablet by mouth every twelve hoursmeloxicam 15 mg oral tablet (15 sources)Nonsteroidal Anti-inflammatory DrugStart: 06-29-2024 End: 25-50-8530qqim 1 tablet by mouth once dailyMeloxicam 15 mg tablet Discontinued 15 MG PO Daily June 29, 2024 5:12pm July 22, 2024 2:18pmpredniSONE 10 mg oral tablet (5 sources)Start: 03-06-2025 End: 05-06-1190jfmd 5 tablets by mouth once daily, then take 4 tablets by mouth once daily, then take 3 tablets bymouth once daily, then take 2 tablets by mouth once daily, then take 1 tablet by mouth once dailypredniSONE (Deltasone) 10 MG tablet Indications: Low back pain, unspecified back pain laterality, unspecified chronicity, unspecified whether sciatica present Take 5 tabs p.o. daily x3 days Take 4 tabs p.o. daily x3 days Take 3 tabs p.o. daily x3 days Take 2 tabs p.o. daily x3 days Take 1 tab p.o. daily x3 days 45 tablet 03/06/2025 04/10/2025 Discontinued (Therapy completed) Problems Active Problems Problem ClassificationProblemDateDocumented DateEpisodic/ChronicAnxiety disorders (3 sources)Generalized anxiety disorder; Translations: [Generalized anxiety disorder]16-01-7428BojpuysOoilfcndmkkdbc (7 sources)Primary gonarthrosis, bilateral; Translations: [Bilateral primary osteoarthritis of knee]65-65-5611BuxupryKtzwx connective tissue disease (1 source)Pain in left foot; Translations: [Pain in left foot]96-75-3471Xxkaymyb Other connective tissue disease (1 source)Pain in right foot; Translations: [Pain in right foot]05-03-2024 EpisodicOther non-traumatic joint disorders (3 sources)Hip pain; Translations: [Pain in right hip]54-54-4036VqglkmcrKdxzo non-traumatic joint disorders (1 source)Pain in right hip; Translations: [Pain in right hip]Onset: 03-03-2025 EpisodicOther nutritional; endocrine; and metabolic disorders (2 sources)Obesity; Translations: [Obesity, unspecified]59-87-8525BtubymqOpgsh nutritional; endocrine; and metabolic disorders (1 source)Obesity, unspecified; Translations: [Obesity, unspecified]06-29-2024 ChronicSpondylosis; intervertebral disc disorders; other back problems (5 sources)Degeneration of intervertebral disc; Translations: [Degeneration of intervertebral disc, site unspecified]62-76-0259DcrqmepRtnvotgokkx; intervertebral disc disorders; other back problems (2 sources)Low back pain; Translations: [Low back pain, unspecified back pain laterality, unspecified chronicity, unspecified whether sciatica present] 19-07-6342NqypqgudGgzddfmbd-related disorders (2 sources)Nicotine dependence; Translations: [Nicotine dependence, chewing tobacco, uncomplicated]08-16-7375Ghzoufp Past or Other Problems Problem ClassificationProblemDateDocumented DateEpisodic/ChronicMalaise and fatigue (1 source)Other fatigue; Translations: [Other fatigue]Onset: 69-28-8409Fknozfmh Other screening for suspected conditions (not mental disorders or infectious disease) (7 sources)Patient encounter status; Translations: [Encounter for screening for malignant neoplasm of prostate]Onset: [id number] on above:PSA: 1.7 - 06/2024 Results Test NameValueInterpretationReference RangeFacilityMR LUMBAR SPINE WO CONTRASTon 13-82-8682BH LUMBAR SPINE WO CONTRASTEXAMINATION/TECHNIQUE: MR LUMBAR SPINE WO CONTRAST HISTORY: Low back pain. No recent injury. Right radiculopathy. COMPARISON: Radiographs 03/03/2025. RESULT: Counting reference: Lumbosacral junction. For the purposes of this report, L5-S1 is considered the last well-formed disc space. 5 lumbar type vertebral bodies. Alignment: Minimal S-shaped curvature. Straightening of the lumbar lordosis. Grade 1 anterolisthesis of L4 on L5 measuring around 3 to 4 mm. Grade 1 anterolisthesis of L5 on S1 measuring around 3 mm. Bone marrow signal: No evidence for acute or chronic fracture. No destructive osseous lesions. Areas of endplate degenerative signal especially at L5-S1. Mild multilevel disc height loss. Conus: The conus is within normal limits of signal intensity and morphology. Paraspinal soft tissues: Unremarkable. T12-L1: No significant canal or foraminal narrowing. L1-L2: Disc bulge. No significant canal or foraminal narrowing. L2-L3: Disc bulge. Possible tiny annular fissure. Ligamentous hypertrophy. Facet degenerative changes. No significant canal or foraminal narrowing. L3-L4: Broad-based disc bulge asymmetric toward the right. Endplate osteophytes. Ligamentous hypertrophy. Facet degenerative changes. Right subarticular narrowing, mild to moderate right foraminal narrowing, mild left foraminal narrowing, mild canal narrowing. L4-L5: Retrolisthesis. Broad-based disc bulge. Small superimposed disc protrusion in the right foraminal to far lateral zone with abutment of the exiting L4 nerve root. Endplate osteophytes. Ligamentous hypertrophy. Facet degenerative changes with facet joint effusions/synovitis. Severe right forami nal narrowing, mild to moderate left foraminal narrowing, without significant canal narrowing. L5-S1: Anterolisthesis with disc uncovering. Disc bulge. Endplate osteophytes. Facet degenerative changes. Severe right foraminal narrowing with abutment of the exiting L5 nerve root. Mild left foraminal narrowing, without significant canal narrowing. Sacrum and iliac wings: The visualized sacrum and iliac wings are unremarkable. IMPRESSION: Degenerative changes lumbar spine as discussed. ELECTRONICALLY SIGNED BY: Elizabeth Dinero AvailableComment on above: Order Comment: Patient smokes, Nipples pierced, Ear piercedXR Pelvis AP and Hip - bilateral GE 2 Viewson 47-32-0634Xpigydi Result: AP pelvis and bilateral frog views demonstrating zems-ct-caeq changes to the left hip with noted proximal migration. Associated lumbar degenerative disc disease on imaging with AP pelvis. No acute fracture bony tumor seen. Right hip showing only minimal arthritic findings.[facility] HealthcareXR Pelvis AP and Hip - bilateral GE 2 Viewson 06-32-2699Qyamjiogp Study observation (narrative)[facility] HealthcareX-ray report Ordered By: Allen Aguiar on 03-08-2976Rstsg reportFIROHIOHEALTH SOUTHEASTERN [place] [address] XRay Report Signed Patient: Shane oGnzalez MR#: [id number] : 1970 Acct:[id number] Age/Sex: 54 / M ADM Date: 5 Loc: ER Room: Type: [facility] ER Attending Dr: Copies to: Gael Leigh PA-C~ Ordering Provider: Gael Leigh PA-C Date of Service: 03/03/25 XR/XR lumbar spine 2-3V*: Extremity Injury, Lower LUMBAR SPINE - 2 views CLINICAL HISTORY: Low back pain radiates down into both hips. COMPARISON: None FINDINGS: Mild scoliosis. Vertebral body heights appear maintained. Diffuse mild to moderate disc space narrowing with facet joint degenerative changes and 5 mm retrolisthesis of L4 on L5. XR/XR lumbar spine 2-3V* IMPRESSION: MILD SCOLIOSIS WITH DIFFUSE MILD TO MODERATE DISC SPACE NARROWING WORST AT L4- L5AND L5-S1. Impression dictated by: Allen Aguiar Jr., D.O. 03/03/2025 2:57 PM Dictation Location: [place] [address] Transcribed By: [facility] 03/03/25 145 Dictated By: Allen Aguiar Jr, DO 03/03/25 1456 Signed By: 03/03/25 1457 [facility] HospitalXR [facility] 2-3V*on 28-51-6886UA lumbar spine 2-3V*[facility] [address] [address] XRay Report Signed Patient: Shane Gonzalez MR#: [id number] : 1970 Acct:[id number] Age/Sex: 54 / M ADM Date: 03/03/25 Loc: ER Room: Type: [facility] ER Attending Dr: Copies to: Gael Leigh PA-C Ordering Provider: Gael Leigh PA-C Date of Service: 03/03/25 XR/XR lumbar spine 2-3V*: Extremity Injury, Lower LUMBAR SPINE - 2 views CLINICAL HISTORY: Low back pain radiates down into both hips. COMPARISON: None FINDINGS: Mild scoliosis. Vertebral body heights appear maintained. Diffuse mild to moderate disc space narrowing with facet joint degenerative changes and 5 mm retrolisthesis of L4 on L5. XR/XR lumbar spine 2-3V* IMPRESSION: MILD SCOLIOSIS WITH DIFFUSE MILD TO MODERATE DISC SPACE NARROWING WORST AT L4-L5 AND L5-S1. Impression dictated by: Allen Aguiar Jr., Chary.OJoselin 03/03/2025 2:57 PM Dictation Location: [facility]--23 Transcribed By: [facility] 03/03/25 1457 Dictated By: Allen Aguiar Jr, DO 03/03/25 1456 Signed By: 03/03/25 1457[facility] Physician GroupLon 08-30-2024L Specimen: [id number] Received: 08/30/24 Status: COLLETTE Alex Num: [id number] Spec Type: Surgical Subm Dr: Cristina Mondragon MD Tissues: A Colon Biopsy (SIGMOID POLYP) B Colon Biopsy (ASCENDING POLYP) Procedures: HE/4, Gross/Micro L4/2 Age/ Patient Sex Location Account Attending Physician Shane Gonzalez /[facility] [id number] Cristina Mondragon MD SPEC NUM: [id number] RECD: 08/30/24 STATUS: COLLETTE BERGMANKrishan NUM: [id number] BARI: 08/30/[address] [facility] [address]: Cristina Mondragon MD ENTERED: 08/30/24 [facility] DR: RASTA TYPE: Surgical DEPT: S ORDERED: HE/4, Gross/Micro L4/2 ORDERED: HE/4, Gross/Micro L4/2 Pathological Diagnosis A. Polyp, sigmoid colon: Tubular Adenoma. - Negative For High Grade Dysplasia And Malignancy. B. Polyp, ascending colon: Tubular Adenoma. - Negative For High Grade Dysplasia And Malignancy. Clinical Information Screen Gross Description A. Received in formalin labeled with the patient's name, date of and sigmoid polyp are 2 mackenzie mucosal tissue fragments admixed with vegetable material measuring 0.2 x 0.2 x 0.1 cm and 0.2 x 0.2 x 0.2 cm. The specimen is entirely submitted in A1. B. Received in formalin labeled with the patient's name, date of and ascending polyp is a 0.5 x 0.3 x 0.2 cm mackenzie mucosal polypoid tissue fragment. The specimen is entirely submitted in B1. Specimen: [id number] Received: 08/30/24 Status: COLLETTE Alex Num: [id number] Spec Type: Surgical Subm Dr: Cristina Mondragon MD Tissues: A Colon Biopsy (SIGMOID POLYP) B Colon Biopsy (ASCENDING POLYP) Procedures: HE/4, Gross/Micro L4/2 Patient: Shane Gonzalez [id number] (Continued) Specimen: [id number] Received: 08/30/24 (Continued) Signed (signature on file) Edgard Le MD 08/31/24 1514 Specimen: [id number] Received: 08/30/24 Status: COLLETTE Alex Num: [id number] Spec Type: Surgical Subm Dr: Cristina Mondragon MD Tissues: A Colon Biopsy (SIGMOID POLYP) B Colon Biopsy (ASCENDING POLYP) Procedures: HE/4, Gross/Micro L4/2 Patient: Shane Gonzalez [id number] (Continued) Specimen: [id number] Received: 08/30/24 (Continued) CPT Codes 14762y6 Specimen: [id number] Received: 08/30/24 Status: COLLETTE Alex Num: [id number] Spec Type: Surgical Subm Dr: Cristina Mondragon MD Tissues: A Colon Biopsy (SIGMOID POLYP) B Colon Biopsy (ASCENDING POLYP) Procedures: HE/4, Gross/Micro L4/2 Patient: DebbimaryShane [id number] (Continued) Signed (signature on file) Edgard Le MD 08/31/[address] [place] [address] Physician GroupAlanine aminotransferase [Enzymatic activity/volume] in Serum or PlasmaOrdered By: Dirk Jeffers on 31-52-3031DZL [Catalytic activity/Vol]Alanine aminotransferase [Enzymatic activity/volume] in Serum or Plasma7-Memorial HospitalAlbumin [Mass/volume] in Serum or Plasma by Bromocresol green (BCG) dye binding metho Ordered By: Dirk Jeffers on 52-81-3297Ubgzjqp BCG dye [Mass/Vol]Albumin [Mass/volume] in Serum or Plasma by Bromocresol green (BCG) dye binding metho 3.5-5.7FMercy Health – The Jewish HospitalAlkaline phosphatase [Enzymatic activity/volume] in Serum or PlasmaOrdered By: Dirk Jeffers on 23-79-5948OVS [Catalytic activity/Vol]Alkaline phosphatase [Enzymatic activity/volume] in Serum or Qdabfe23-256GvjfpmvwtMemorial HospitalAspartate aminotransferase [Enzymatic activity/volume] in Serum or PlasmaOrdered By: Dirk Jeffers on 03-50-3666FTX [Catalytic activity/Vol]Aspartate aminotransferase [Enzymatic activity/volume] in Serum or Flyixs17-92IrrdprbqyMemorial Hospital Basophils Auto (Bld) [#/Vol]Ordered By: Dirk Jeffers on 73-14-4727Cvhosvcwt (Bld) [#/Vol]Automated basophil count0.0-0.2FMercy Health – The Jewish Hospital Basophils/100 WBC Auto (Bld)Ordered By: Dirk Jeffers on 53-27-5020Jgxcoivnr/100 WBC (Bld)Automated basophil %.Memorial HospitalBilirubin.total [Mass/volume] in Serum or PlasmaOrdered By: Dirk Jeffers 16-33-1423Laofiauua [Mass/Vol]Bilirubin.total [Mass/volume] in Serum or PlasmaHigh0.3-1.0Memorial HospitalCalcium [Mass/volume] in Serum or PlasmaOrdered By: Dirk Jeffers 50-03-0219Oorngvs [Mass/Vol]Calcium [Mass/volume] in Serum or Plasma8.6-10.3FMercy Health – The Jewish HospitalCarbon dioxide, total [Moles/volume] in Serum or PlasmaOrdered By: Dirk Jeffers 99-89-0496UI1 [Moles/Vol]Carbon dioxide, total [Moles/volume] in Serum or Chvxiu88.0-31.0 Memorial HospitalChloride [Moles/volume] in Serum or Plasma Ordered By: Dirk Jeffers 11-03-7927Dhcchaus [Moles/Vol]Chloride [Moles/volume] in Serum or Wfngjw73-947TmesxtirzMemorial Hospital Cholesterol [Mass/volume] in Serum or PlasmaOrdered By: Dirk Jeffers 13-82-7259Ddenqzctvkj [Mass/Vol]Cholesterol [Mass/volume] in Serum or PlasmaHigh 140-200Memorial HospitalComment on above:Chol less than 200 mg/dl low riskChol 201-239 mg/dl borderline riskChol 240 mg/dl and greater high riskCholesterol in HDL [Mass/volume] in Serum or PlasmaOrdered By: Dirk Jeffers 30-22-1709Maudixymytk in HDL [Mass/Vol]Serum or plasma high density lipoprotein (HDL) cholesterol ozvhbcusahw09-57RadwmrtctMemorial Hospital Comment on above:HDL CHOL ATP-III CLASSIFICATION Cardiovascular RiskHDL > or equal to 60 mg/dL LOWHDL < 40 mg/dL HIGHCholesterol in LDL Calc [Mass/Vol] Ordered By: Dirk Jeffers on 25-27-5936Qraxufgfakr in LDL [Mass/Vol]Cholesterol in LDL [Mass/volume] in Serum or Plasma by calculationHigh0-100Memorial HospitalComment on above:LDL ATP III CLASSIFICATIONLDL less than 100 mg/dL OptimalLDL 100-129 mg/dL Near or above dfqdftcYNK432-738 mg/dL Borderline highLDL 160-189 mg/dL HighLDL greater than 189 mg/dL Very high Cholesterol in VLDL Calc [Mass/Vol]Ordered By: Dirk Jeffers on 07-01-2024 Cholesterol in VLDL [Mass/Vol]Cholesterol in VLDL [Mass/volume] in Serum or Plasma by calculationMemorial HospitalComplete Blood Count Auto Diffon 92-54-4724Fftguisom (Bld) [#/Vol]0.1 10*3/uLNormal0.0-0.2The [facility] Physician GroupComment on above:Result Comment: PERFORMED BY: [place] [address] PATHOLOGIST CARDIAC CATHETERIZATION TECHNICIAN EDGARD LE M.D.Performed By: #### CBC, CMP, LIPID, TEST, PSAS #### [facility] [address] [place] [address] USABasophils/100 WBC (Bld)1.3 %Normal.[facility] Physician GroupComment on above:Performed By: #### CBC, CMP, LIPID, TEST, PSAS #### [facility] [address] [place] [address] USAEosinophils (Bld) [#/Vol]0.1 10*3/uLNormal0.0-0.45The [facility] Physician GroupComment on above:Performed By: #### CBC, CMP, LIPID, TEST, PSAS #### [facility] [address] [place] [address] USAEosinophils/100 WBC (Bld)1.0 %Normal.[facility] Physician GroupComment on above:Performed By: #### CBC, CMP, LIPID, TEST, PSAS #### [place] [address] USAErythrocyte distribution width (RBC) [Ratio]12.7 %Normal 12.0-14.8The [facility] Physician GroupComment on above:Performed By: #### CBC, CMP, LIPID, TEST, PSAS #### [place] [address] USAHematocrit (Bld) [Volume fraction]49.2 %Xdtlgg36.8-50.0The [facility] Physician GroupComment on above:Performed By: #### CBC, CMP, LIPID, TEST, PSAS #### [place] [address] USAHemoglobin (Bld) [Mass/Vol]17.3 g/rDHama34.0-17.0The [facility] Physician GroupComment on above:Performed By: #### CBC, CMP, LIPID, TEST, PSAS #### [place] [address] USALymphocytes (Bld) [#/Vol]2.0 10*3/uLNormal1.00-4.8The [facility] Physician GroupComment on above:Performed By: #### CBC, CMP, LIPID, TEST, PSAS #### [place] [address] USALymphocytes/100 WBC (Bld)19.4 %Normal.[facility] Physician GroupComment on above:Performed By: #### CBC, CMP, LIPID, TEST, PSAS #### [place] [address] USAMCH (RBC) [Entitic mass]35.0 nuHhxchn85.5-35.2The [facility] Physician GroupComment on above:Performed By: #### CBC, CMP, LIPID, TEST, PSAS #### [place] [address] USAMCV (RBC) [Entitic vol]99.6 bHMhqylt61.5-101The [facility] Physician GroupComment on above:Performed By: #### CBC, CMP, LIPID, TEST, PSAS #### [place] [address] USAMean Corpuscular HGB Conc35.1 g/zAOvstzs16.5-35.6The [facility] Physician GroupComment on above:Performed By: #### CBC, CMP, LIPID, TEST, PSAS #### [place] [address] USAMonocytes (Bld) [#/Vol]1.1 10*3/uLHigh0.0-0.8The [facility] Physician GroupComment on above:Performed By: #### CBC, CMP, LIPID, TEST, PSAS #### [place] [address] USAMonocytes/100 WBC (Bld)11.0 %Normal.[facility] Physician GroupComment on above:Performed By: #### CBC, CMP, LIPID, TEST, PSAS #### [place] [address] USANeutrophils (Bld) [#/Vol]6.9 10*3/uLNormal1.8-7.7The [facility] Physician GroupComment on above:Performed By: #### CBC, CMP, LIPID, TEST, PSAS #### [place] [address] USANeutrophils/100 WBC (Bld)67.3 %Normal.[facility] Physician GroupComment on above:Performed By: #### CBC, CMP, LIPID, TEST, PSAS #### [place] [address] USANRBC%0.2 /100{WBC}Normal0-0.5The [facility]ician Group Comment on above:Performed By: #### CBC, CMP, LIPID, TEST, PSAS #### [place] [address] USAPlatelet mean volume (Bld) [Entitic vol]7.9 fLNormal 6.6-10.1The [facility] Physician GroupComment on above:Performed By: #### CBC, CMP, LIPID, TEST, PSAS #### [place] [address] USAPlatelets (Bld) [#/Vol]227 10*3/bNQartyi853-730Ply [facility] Physician GroupComment on above:Performed By: #### CBC, CMP, LIPID, TEST, PSAS #### [place] [address] USARBC (Bld) [#/Vol]4.94 10*6/uLNormal3.90-5.60The [facility] Physician GroupComment on above:Performed By: #### CBC, CMP, LIPID, TEST, PSAS #### [place] [address] USAWBC (Bld) [#/Vol]10.2 10*3/uLNormal4.1-10.5The [facility] Physician GroupComment on above:Performed By: #### CBC, CMP, LIPID, TEST, PSAS #### [place] [address] USAComprehensive Metabolic Panelon 93-00-1574Tpxdrvy [Mass/Vol]4.6 g/dLNormal3.5-5.7The [facility] Physician GroupComment on above: Performed By: #### CBC, CMP, LIPID, TEST, PSAS #### [place] [address] USAAlbumin/Globulin [Mass ratio]2.0 {ratio}NormalThe [facility] Hospital Physician GroupComment on above:Performed By: #### CBC, CMP, LIPID, TEST, PSAS #### [place] [address] USAALP [Catalytic activity/Vol]64 U/HGqzyau74-858Plm [facility] Physician GroupComment on above:Performed By: #### CBC, CMP, LIPID, TEST, PSAS #### [place] [address] USAALT [Catalytic activity/Vol]48 U/LNormal7-52The [facility] Physician GroupComment on above:Performed By: #### CBC, CMP, LIPID, TEST, PSAS #### [place] [address] USAAnion gap [Moles/Vol]11.7 mmol/LNormal6.0-15.0The [facility] Physician GroupComment on above:Performed By: #### CBC, CMP, LIPID, TEST, PSAS #### [place] [address] USAAST [Catalytic activity/Vol]31 U/KFlnjwd14-36Jda [facility] Physician GroupComment on above:Performed By: #### CBC, CMP, LIPID, TEST, PSAS #### [place] [address] USABilirubin [Mass/Vol]1.1 mg/dLHigh0.3-1.0The [facility] Physician GroupComment on above:Performed By: #### CBC, CMP, LIPID, TEST, PSAS #### [place] [address] USACalcium [Mass/Vol]9.5 mg/dLNormal8.6-10.3The [facility] Physician GroupComment on above:Performed By: #### CBC, CMP, LIPID, TEST, PSAS #### [place] [address] USAChloride [Moles/Vol]101 mmol/NHebjfm86-716Czx [facility] Physician GroupComment on above:Performed By: #### CBC, CMP, LIPID, TEST, PSAS #### [place] [address] USACO2 [Moles/Vol]30.7 mmol/OQgwwzv29.0-31.0The [facility] Physician GroupComment on above:Performed By: #### CBC, CMP, LIPID, TEST, PSAS #### [place] [address] USACreatinine [Mass/Vol]1.20 mg/dLNormal0.70-1.30The [facility] Physician GroupComment on above:Performed By: #### CBC, CMP, LIPID, TEST, PSAS #### [address] [place] [address] USAGFR/1.73 sq M.predicted MDRD (S/P/Bld) [Vol rate/Area] mL/min/{1.73_m2}NormalThe [facility] Physician GroupComment on above:Performed By: #### CBC, CMP, LIPID, TEST, PSAS #### [facility] [address] [place] [address] USAGlobulin (S) [Mass/Vol]2.3 g/dLNormalThe [facility] Physician GroupComment on above:Performed By: #### CBC, CMP, LIPID, TEST, PSAS #### [facility] [address] [place] [address] USAGlucose [Mass/Vol]101 mg/oNLcat41-429Zcl [facility] Physician GroupComment on above:Result Comment: Random Glucose Reference Range is dependent on time and content of last meal. Glucose of more than 200 mg/dL in a nonstressed, ambulatory subject supports the diagnosis of Diabetes Mellitus. ADA recommended reference rangePerformed By: #### CBC, CMP, LIPID, TEST, PSAS #### [facility] [address] [place] [address] USAPotassium [Moles/Vol]4.4 mmol/LNormal3.5-5.1The [facility] Physician GroupComment on above:Performed By: #### CBC, CMP, LIPID, TEST, PSAS #### [facility] [address] [place] [address] USAProtein [Mass/Vol]6.9 g/dLNormal6.4-8.9The [facility] Physician GroupComment on above:Performed By: #### CBC, CMP, LIPID, TEST, PSAS #### [facility] [address] [place] [address] USASodium [Moles/Vol]139 mmol/RBdbopd758-422Rsy [facility] Physician GroupComment on above:Performed By: #### CBC, CMP, LIPID, TEST, PSAS #### [facility] [address] [place] [address] USAUrea nitrogen [Mass/Vol]12 mg/dLNormal7-25The [facility] Physician GroupComment on above:Performed By: #### CBC, CMP, LIPID, TEST, PSAS #### [facility] [address] [place] [address] USACreatinine [Mass/volume] in Serum or PlasmaOrdered By: Dirk Jeffers on 87-33-3841Wyyoxfdicv [Mass/Vol]Creatinine [Mass/volume] in Serum or Plasma0.70-1.30Memorial HospitalEosinophils Auto (Bld) [#/Vol]Ordered By: Dirk Jeffers on 41-66-6286Msgfowlyihf (Bld) [#/Vol]Automated eosinophil count0.0-0.45Memorial HospitalEosinophils/100 WBC Auto (Bld)Ordered By: Dirk Jeffers on 45-61-9990Xufoqslkrzh/100 WBC (Bld) Automated eosinophil %.Memorial HospitalErythrocyte distribution width Auto (RBC) [Ratio]Ordered By: Dirk Jeffers on 97-81-1215Fknzqtzqkkt distribution width (RBC) [Ratio]Erythrocyte distribution width [Ratio] by Automated count12.0-14.8Memorial HospitalGlobulin Calc (S) [Mass/Vol]Ordered By: Dirk Jeffers on 61-51-7961Otinpjrz (S) [Mass/Vol]Serum globulin measurement by calculation (mass/volume)Memorial HospitalGlucose [Mass/volume] in Serum or PlasmaOrdered By: Dirk Jeffers on 68-02-2109Cpxitee [Mass/Vol]Glucose [Mass/volume] in Serum or RwqlgoWuxp51-471 Memorial HospitalComment on above:ADA recommended reference rangeRandom Glucose Reference Range is dependent on time and content of last meal. Glucose of more than 200 mg/dL in a nonstressed, ambulatory subject supports the diagnosisof Diabetes Mellitus.Hematocrit Auto (Bld) [Volume fraction]Ordered By: Dirk Jeffers on 42-56-3539Nvsuinjcnl (Bld) [Volume fraction]Hematocrit [Volume Fraction] of Blood by Automated count38.8-50.0 Memorial HospitalHemoglobin [Mass/volume] in BloodOrdered By: Dirk Jeffers 37-33-2612Kkfabbblrg (Bld) [Mass/Vol]Hemoglobin [Mass/volume] in SentwGooc75.0-17.0Memorial HospitalLeukocytes [#/volume] corrected for nucleated erythrocytes in Blood by Automated counOrdered By: Dirk Jeffers on 90-20-9462TUO corrected for nucl RBC Auto (Bld) [#/Vol] Leukocytes [#/volume] corrected for nucleated erythrocytes in Blood by Automated coun4.1-10.5FMercy Health – The Jewish HospitalLipid Panelon 07-01-2024 Cholesterol [Mass/Vol]245 mg/yTNgfz756-689Wsp [facility] Physician GroupComment on above:Result Comment: Chol less than 200 mg/dl low risk Chol 201-239 mg/dl borderline risk Chol 240 mg/dl and greater high riskPerformed By: #### CBC, CMP, LIPID, TEST, PSAS #### [facility] [address] [place] [address] USACholesterol in HDL [Mass/Vol]53 mg/bZPweoqo15-85Rvo [facility] Physician GroupComment on above:Result Comment: HDL CHOL ATP-III CLASSIFICATION Cardiovascular Risk HDL > or equal to 60 mg/dL LOW HDL < 40 mg/dL HIGHPerformed By: #### CBC, CMP, LIPID, TEST, PSAS #### [facility] [address] [place] [address] USACholesterol.total/Cholesterol in HDL [Mass ratio]4.6 {ratio}Normal<5.0The [facility] Medical CenterComment on above:Result Comment: PERFORMED BY: [place] [address] PATHOLOGIST CARDIAC CATHETERIZATION TECHNICIAN EDGARD LE M.D.Performed By: #### CBC, CMP, LIPID, TEST, PSAS #### [facility] [address] [place] [address] USALDL Cholesterol,Johlexyvnm924 mg/dLHigh0-100The [facility] Physician [facility] HospitalComment on above:Result Comment: LDL ATP III CLASSIFICATION LDL less than 100 mg/dL Optimal LDL 100-129 mg/dL Near or above optimal LDL 130-159 mg/dL Borderline high LDL 160-189 mg/dL High LDL greater than 189 mg/dL Very highPerformed By: #### CBC, CMP, LIPID, TEST, PSAS #### [facility] [address] [place] [id number] USATriglyceride w/Zhiigb829 mg/dLNormal0-149St[facility] Physician GroupComment on above:Result Comment: TRIG ATP III CLASSIFICATION TRIG less than 150 mg/dL Normal TRIG 150-199 mg/dL Borderline high TRIG 200-500 mg/dL High TRIG greater than 500 mg/dL Very high Standard traceable to the Center for Disease Conrtrol and Prevention (CDC) test method.Performed By: #### CBC, CMP, LIPID, TEST, PSAS #### [facility] [address] [place] [address] USAVLDL DSHFGNQYILS46 mg/dLNormalThe [facility] Physician GroupComment on above:Performed By: #### CBC, CMP, LIPID, TEST, PSAS #### [facility] [address] [place] [id number] USALymphocytes Auto (Bld) [#/Vol]Ordered By: Dirk Jeffers on 76-55-1254Ymmoasswjsf (Bld) [#/Vol]Lymphocytes [#/volume] in Blood by Automated count1.00-4.8Memorial HospitalLymphocytes/100 WBC Auto (Bld) Ordered By: Dirk Jeffers on 87-37-8484Oahoettxrok/100 WBC (Bld)Lymphocytes/100 leukocytes in Blood by Automated count.[facility] Auto (RBC) [Entitic mass]Ordered By: Dirk Jeffers on 12-52-1157JUA (RBC) [Entitic mass]MCH [Entitic mass] by Automated count27.5-35.2FMercy Health Tiffin HospitalHC Auto (RBC) [Mass/Vol]Ordered By: Dirk Jeffers on 57-21-5441STTZ (RBC) [Mass/Vol]MCHC [Mass/volume] by Automated count32.5-35.6FMercy Health Tiffin HospitalV Auto (RBC) [Entitic vol]Ordered By: Dirk Jeffers on 01-60-9952WWG (RBC) [Entitic vol]MCV [Entitic volume] by Automated count83.5-101 Memorial HospitalMonocytes Auto (Bld) [#/Vol]Ordered By: Dirk Jeffers on 75-79-9383Qynatmgox (Bld) [#/Vol]Automated blood monocyte count High0.0-0.8Memorial HospitalMonocytes/100 WBC Auto (Bld)Ordered By: Dirk Jeffers on 21-60-9803Coblfvjrr/100 WBC (Bld)Automated monocyte %. Memorial HospitalNeutrophils Auto (Bld) [#/Vol]Ordered By: Dirk Jeffers on 10-86-6042Jxevdpeloiz (Bld) [#/Vol]Neutrophils [#/volume] in Blood by Automated count1.8-7.7FMercy Health – The Jewish HospitalNeutrophils/100 WBC Auto (Bld)Ordered By: Dirk Jeffers on 69-17-4565Woevmkojykw/100 WBC (Bld) Automated neutrophil %.[facility]orial HospitalNo Panel Information Ordered By: Dirk Jeffers on 80-39-1162Szindrsdf GFR (CKD-EPI)> 60.0 mL/Min Memorial HospitalPharmacy Creatinine Clearance (ChemN/AFMercy Health – The Jewish HospitalNucleated erythrocytes [Presence] in Blood by Automated countOrdered By: Dirk Jeffers on 83-35-4842Qerztfvsf RBC Auto Ql (Bld)Nucleated erythrocytes [Presence] in Blood by Automated count0-0.5FMercy Health – The Jewish HospitalPSA Screen (Yearly Only)on 38-14-6821YNP Screen (Yearly Only)1.700 ng/mLNormal0.000-4.000The [facility] Physician GroupComment on above:Result Comment: Serial tumor marker results determined by assays using different manufacturers or methods may not be comparable. [facility] bass mechanism maker and method: MARQUEZ MicronotesEL DXI, CHEMILUMINESCENT IMMUNOASSAY. PERFORMED BY: [place] [address] PATHOLOGIST CARDIAC CATHETERIZATION TECHNICIAN EDGARD LE M.D.Performed By: #### CBC, CMP, LIPID, TEST, PSAS #### [place] [address] USAPlatelet mean volume Auto (Bld) [Entitic vol]Ordered By: Dirk Jeffers on 91-49-3657Gkouebrh mean volume (Bld) [Entitic vol]Platelet mean volume [Entitic volume] in Blood by Automated count6.6-10.1FMercy Health – The Jewish HospitalPlatelets Auto (Bld) [#/Vol]Ordered By: Dirk Jeffers on 40-86-9488Mturesfsg (Bld) [#/Vol]Platelets [#/volume] in Blood by Automated -732TwmwbpkolMemorial HospitalPotassium [Moles/volume] in Serum or PlasmaOrdered By: Dirk Jeffers on 73-28-3587Ypvoyopvt [Moles/Vol]Potassium [Moles/volume] in Serum or Plasma3.5-5.1FMercy Health – The Jewish Hospital Prostate specific Ag [Mass/volume] in Serum or PlasmaOrdered By: Dirk Jeffers on 99-27-7630Jlyftgko specific Ag [Mass/Vol]Prostate specific Ag [Mass/volume] in Serum or Plasma0.000-4.000Memorial HospitalComment on above: Serial tumor marker results determined by assays using different manufacturers or methods may not be comparable.[facility] bass mechanism maker and method:[employer] DXI, CHEMILUMINESCENT IMMUNOASSAY.Protein [Mass/volume] in Serum or PlasmaOrdered By: Dirk Jeffers on 64-83-4552Zzlrovq [Mass/Vol]Protein [Mass/volume] in Serum or Plasma6.4-8.9Memorial HospitalRBC Auto (Bld) [#/Vol]Ordered By: Dirk Jeffers on 01-26-9151UJK (Bld) [#/Vol] Erythrocytes [#/volume] in Blood by Automated count3.90-5.60[facility] Behavioral Medical Centererum or plasma albumin/globulin mass ratioOrdered By: Dirk Jeffers 30-92-9070Duyijjz/Globulin [Mass ratio]Serum or plasma albumin/globulin mass ratioKettering Health Behavioral Medical Centererum or plasma anion gap determinationOrdered By: Dirk Jeffers on 26-84-3412Rqnxz gap [Moles/Vol]Serum or plasma anion gap determination6.0-15.0[facility] Behavior[facility] Medical Centererum or plasma total cholesterol/high density lipoprotein (HDL) cholesterol mass rat Ordered By: Dirk Jeffers on 60-62-0460Znumbffkswp.total/Cholesterol in HDL [Mass ratio]Serum or plasma total cholesterol/high density lipoprotein (HDL) cholesterol mass rat<5.0[facility] Behavioral Medical Centerodium [Moles/volume] in Serum or PlasmaOrdered By: Dirk Jeffers on 88-60-5737Jhvshr [Moles/Vol] Sodium [Moles/volume] in Serum or Bdtmgx661-567ArcmcvrnqMemorial Hospital Testosteroneon 87-79-4726Mfaujzirldua5.50 ng/mLNormal1.75-7.81The [facility] Physician GroupComment on above:Result Comment: PERFORMED BY: [facility] [address] [place] [address] PATHOLOGIST CARDIAC CATHETERIZATION TECHNICIAN EDGADR LE M.D.Performed By: #### CBC, CMP, LIPID, TEST, PSAS #### [facility] [address] [place] [id number] USATestosterone [Mass/volume] in Serum or PlasmaOrdered By: Dirk Jeffers on 76-32-9813Cqvkkevhkdqz [Mass/Vol]Testosterone [Mass/volume] in Serum or Plasma1.75-7.81Memorial HospitalTriglyceride [Mass/volume] in Serum or PlasmaOrdered By: Dirk Jeffers on 07-01-2024 Triglyceride [Mass/Vol]Triglyceride [Mass/volume] in Serum or Plasma0-149 Memorial HospitalComment on above:TRIG ATP III CLASSIFICATIONTRIG less than 150 mg/dL NormalTRIG 150-199 mg/dL Borderline highTRIG 200-500 mg/dL High TRIG greater than 500 mg/dL Very highStandard traceable to the Center for Disease Conrtrol and Prevention (CDC) test method. Urea nitrogen [Mass/volume] in Serum or PlasmaOrdered By: Dirk Jeffers on 73-59-7794Nswl nitrogen [Mass/Vol]Urea nitrogen [Mass/volume] in Serum or Plasma 7-25Memorial HospitalWBC Auto (Bld) [#/Vol]Ordered By: Dirk Jeffers on 75-66-7355IMT (Bld) [#/Vol]Leukocytes [#/volume] in Blood by Automated count4.1-10.5FMercy Health – The Jewish HospitalXR FOOT LANDON MIN 3 VIEWSon 30-99-0028EjaMarietta Memorial Hospital [address] [place] [address] XRay Report Signed Patient: SHANE GONZALEZ MR#: [id number] : 1970 Acct:[id number] Age/Sex: 53 / M ADM Date: 04/26/24 Loc: EC Attending Dr: Dayne Pardo D.P.M. Ordering Physician: Dayne Pardo D.P.M. Date of Service: 04/26/24 Procedure(s): XR foot LANDON min 3V Accession Number(s): [id number] cc: MATTHEW RICCI ; Dayne Pardo D.P.M. The [address] [address] Patient Name: SHANE GONZALEZ MRN: [facility]:[id number] date: 1970 Sex: M Assigned Patient Location: Current Patient Location: Accession/Order Number: [id number] Exam Date: 04/26/2024 08:34 Report Date: 04/26/2024 10:15 At the request of: DAYNE PARDO Procedure: XR foot LANDON min 3V EXAMINATION: XR foot LANDON min 3V HISTORY: BILATERAL FOOT PAIN COMPARISON: No relevant comparison available. FINDINGS: RIGHT FINDINGS: BONES: Partial flattening of the plantar arch. No acute fracture or dislocation. Moderate calcaneal plantar enthesopathic spurring SOFT TISSUES: Negative. No visible soft tissue swelling. OTHER: Negative. LEFT FINDINGS: BONES: Partial flattening of the plantar arch. No acute fracture or dislocation. Moderate calcaneal plantar enthesopathic spurring SOFT TISSUES: Negative. No visible soft tissue swelling. OTHER: Negative. XR/XR foot LANDON min 3V IMPRESSION: Partial flattening of the plantar arch with degenerative change Electronically authenticated by: ELO COYLE Date: 04/26/2024 10:15 Dictated By: Elo Coyle M.D. Signed By: 04/26/24 1018 DD/ 1015 TD/TT: Tire Curer:TBHRadiology, Radiologist, - 04/26/[address] [address] XRay Report Signed Patient: SHANE GONZALEZ MR#: [id number] : 1970 Acct:[id number] Age/Sex: 53 / M ADM Date: 04/26/24 Loc: EC Attending Dr: Dayne Pardo D.P.M. Ordering Physician: Dayne Pardo D.P.M. Date of Service: 04/26/24 Procedure(s): XR foot LANDON min 3V Accession Number(s): [id number] cc: MATTHEW RICCI ; Dayne Pardo D.P.M. [address] [address] Patient Name: SHANE GONZALEZ MRN: [facility]:[id number] date: 1970 Sex: M Assigned Patient Location: Current Patient Location: Accession/Order Number: [id number] Exam Date: 04/26/2024 08:34 Report Date: 04/26/2024 10:15 At the request of: DAYNE PARDO Procedure: XR foot LANDON min 3V EXAMINATION: XR foot LANDON min 3V HISTORY: BILATERAL FOOT PAIN COMPARISON: No relevant comparison available. FINDINGS: RIGHT FINDINGS: BONES: Partial flattening of the plantar arch. No acute fracture or dislocation. Moderate calcaneal plantar enthesopathic spurring SOFT TISSUES: Negative. No visible soft tissue swelling. OTHER: Negative. LEFT FINDINGS: BONES: Partial flattening of the plantar arch. No acute fracture or dislocation. Moderate calcaneal plantar enthesopathic spurring SOFT TISSUES: Negative. No visible soft tissue swelling. OTHER: Negative. XR/XR foot LANDON min 3V IMPRESSION: Partial flattening of the plantar arch with degenerative change Electronically authenticated by: ELO COYLE Date: 04/26/2024 10:15 Dictated By: Elo Coyle M.D. Signed By: 04/26/24 1018 DD/ 1015 TD/TT: Tire Curer: OSWALD HealthcareRadiology Study observation (narrative)[facility] HealthcareXR FOOT LANDON MIN 3 VIEWSOrdered By: Radiologist Radiology on 50-75-5871NXZD Healthcare Work Phone: Lab - Toxicology Resultson 59-30-4431Sdg - Toxicology [id number]#1.00OTMagruder Memorial Hospital Vital Signs Date TimeVital SignValuePerforming IroxuxgbsRhfeccbm90-16-2433 08:56-0400Body thadhg850.7 cmDavid Pocos DO Work Phone: [phone]10-24-2025 08:56-0400Body mass index (BMI) [Ratio]32.23 kg/m0Sfxze Pocos DO Work Phone: [phone] [place], [place] 1304010-24-2025 08:56-0400Body iyrhyl34.16 kgDavid Pocos DO Work Phone: [phone] [place], [place] 1304009-15-2025 12:57-0400Body .7 cmTStevens Clinic Hospital PA Work Phone: [phone] [place], [place] 1304009-15-2025 12:57-0400Body mass index (BMI) [Ratio]32.23 kg/m2ToRiver's Edge Hospital PA Work Phone: [phone] [place], [place] 1304009-15-2025 12:57-0400Body hhfjed54.16 kgToRiver's Edge Hospital PA Work Phone: [phone] [place], [place] 1304008-11-2025 15:45-0400Body dbumnx475.7 cmTStevens Clinic Hospital PA Work Phone: [phone] [place], [place] 1304008-11-2025 15:45-0400Body mass index (BMI) [Ratio]32.23 kg/m2[facility] Work Phone: [phone] [place], [place] 1304008-11-2025 15:45-0400Body ukbhuw34.16 kgToRiver's Edge Hospital PA Work Phone: [phone] [place], [place] 1304008-08-2025 13:35-0400Body rbxquw460.72 cmBenjamin Ball DO Work Phone: [facility]08-08-2025 13:35-0400 Body bozlypxmyam12.4 [degF]Dirk Ball DO Work Phone: [facility]08-08-2025 13:35-0400 Body kgBenjamin Ball DO Work Phone: [facility]08-08-2025 13:35-0400 Diastolic blood qqbbayqa49 mm[Hg]Dirk Ball DO Work Phone: [facility]08-08-2025 13:35-0400 Heart rate96 /minBenjamin Ball DO Work Phone: [phone] [place], [place] 9992908-08-2025 13:35-0400 Respiratory rate18 /minBenjamin Ball DO Work Phone: [phone] [place], [place] 9992908-08-2025 13:35-0400 SaO2% (BldA) [Mass fraction]99 %Dirk Ball DO Work Phone: [phone])[facility] [place], [place] 9992908-08-2025 13:35-0400 Systolic blood ysutnuuc271 mm[Hg]Dirk Ball DO Work Phone: [phone] [place], [place] 7393802-04-2025 09:38-0500 Diastolic blood mrhjlupt31 mm[Hg]Dirk Ball DO Work Phone: [phone] [place], [place] 7393802-04-2025 09:38-0500 Heart rate70 /minBenjamin Ball DO Work Phone: [phone] [place], [place] 7393802-04-2025 09:38-0500 Respiratory rate16 /minBenjamin Ball DO Work Phone: [phone] [place], [place] 7393802-04-2025 09:38-0500 SaO2% (BldA) [Mass fraction]99 %Dirk Ball DO Work Phone: [phone] [place], [place] 7393802-04-2025 09:38-0500 Systolic blood mm[Hg]Dirk Ball DO Work Phone: [phone] [place], [place] 7393802-04-2025 07:05-0500 Body .72 cmBenjamin Ball DO Work Phone: [phone] [place], [place] 7393802-04-2025 07:05-0500 Body seonzz572.41 kgBenjamin Ball DO Work Phone: [phone] [place], [place] 9992912-04-2024 15:38-0500 Body egcmqh137.72 cmBenjamin Ball DO Work Phone: [phone] [place], [place] 9992912-04-2024 15:38-0500 Body mass index (BMI) [Ratio]37.7 kg/e4Agtqwasf Ball DO Work Phone: [facility]12-04-2024 15:38-0500 Body drrtox771.6 kgBenjamin Ball DO Work Phone: [facility]12-04-2024 15:38-0500 Diastolic blood iooifqzn30 mm[Hg]Dirk Ball DO Work Phone: [facility]12-04-2024 15:38-0500 Heart rate99 /minBenjamin Ball DO Work Phone: [facility]12-04-2024 15:38-0500 Respiratory rate12 /minBenjamin Ball DO Work Phone: [facility]12-04-2024 15:38-0500 Systolic blood zqvddkde995 mm[Hg]Dirk Ball DO Work Phone: [facility] Encounters Encounter DateEncounter TypeCare ProviderFacilityStart: 05-19-2025 End: 87-93-0157Fhkmhy flowsheetDavid A Pocos DO Work Phone: [facility] [place] [facility]opaedicsStart: 05-19-2025 End: 87-15-3388Hblkzf flowsheetDavid A Pocos DO Work Phone: [phone] [place] [facility] OrthopaedicsStart: 05-19-2025 End: 03-68-7361Pmnuvlh encounter procedureDavid A Pocos DO Work Phone: [phone] [place] Access OrthopaedicsComment on above: Primary osteoarthritis of left hip (Primary Dx); Left hip pain; Chewing tobacco nicotine dependence without complicationStart: 05-19-2025 End: 47-02-7461aevlzcwdofPIYWF A POCOSNot AvailableStart: 04-10-2025 End: 05-38-6764Jecziz flowsheetTodd Chary Arce PA Work Phone: [phone] [place] [facility] OrthopaedicsStart: 04-10-2025 End: 14-42-7843Qmmobl flowsheetZayra Arce PA Work Phone: [facility] [place] [facility]opaedicsStart: 04-10-2025 End: 11-85-6289Fusuweo encounter procedureZayra Arce PA Work Phone: [facility] [place] [facility] OrthopaedicsComment on above: 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 (Primary Dx)Start: 04-10-2025 End: 20-08-2625zxlqhkryziRNSN D RENETTANot AvailableStart: 04-07-2025 End: 37-23-0743dvrkjodgssMKHS D RENETTANot AvailableStart: 03-21-2025 End: 49-04-6755Tyncixsyv encounterAmanda Anayeli [facility] Comment on above:Increased pain/numbness in R legStart: 03-06-2025 End: 92-61-2727Pxyvzvm encounter procedureZayra Chary Arce JEFF Work Phone: [facility] OrthopaedicsComment on above: Primary localized osteoarthrosis of the hip, left (Primary Dx); 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; Low back pain, unspecified back pain laterality, unspecified chronicity, unspecified whether sciatica presentStart: 03-06-2025 End: 79-30-1491qesekndxotUMHC D HILLSNot AvailableStart: 03-06-2025 End: 47-00-3817nvcjbhswngPSJC D HILLSNot AvailableStart: 03-03-2025 End: 33-75-0559Ijcebtkmu department patient visitBenjamin Ball DO Work Phone: [phone]-Zodzxsqsn Room Work Phone: Start: 54-30-9024Cee-patient / Non-visitBenjamin Ball DO Work Phone: [facility] Work Phone: Start: 08-30-2024 End: 30-26-1705Wjtahffln to same day surgery centerBenjamin Ball DO Work Phone: [facility] Work Phone: Start: 08-30-2024 End: 09-91-3624fkuksqjjkxLunnhiup Ball DO Work Phone: [facility] Work Phone: Start: 07-01-2024 End: 63-07-5459Xowghoy encounter procedureBenjamin Ball DO Work Phone: [facility] [place] Work Phone: Start: 07-01-2024 End: 14-90-3906wiwnavoomsFmkqeyzv BallFacility:[facility] Start: 80-98-1202Ojndnatye for general adult medical examination without abnormal findingsBenjamin BallSt. Anthony'S Hospital Physician GroupStart: 06-29-2024 End: 27-33-4372Tgdwrzcml for general adult medical examination without abnormal findingsBenjamin Ball DO Work Phone: [facility] Centertart: 06-29-2024 End: 27-32-4557Ttmixzk encounter procedureBenjamin Ball DO Work Phone: [facility] Work Phone: Start: 66-05-4379Wahefjs encounter statusBenjamin Ball DO Work Phone: [facility] Centertart: 49-06-0483Qwk- patient / Non-visitBenjamin Ball DO Work Phone: [facility] Work Phone: Start: 05-03-2024 End: 73-84-8837urpduwgpkcEejfsbf D Gundlach PT Work Phone: NOFI SWS PTComment on above:Left foot pain (Primary Dx); Right foot painStart: 05-03-2024 End: 75-95-4892Tppstj flowsheetMatthew D Gundlach PT Work Phone: [facility] PTStart: 05-03-2024 End: 22-67-7300Bmxovr flowsheetMattmallorie Diez Krishan PT Work Phone: [facility] PTStart: 04-26-2024 End: 28-93-2448Gjisdgfjr Result EncounterGeneric External Data ProviderNOMS External Department UnsolicitedStart: 04-26-2024 End: 04-01-7796Ruiprgsbc Result EncounterGeneric External Data ProviderNOMS External Department UnsolicitedStart: 42-65-5976hdkurrzcilJnagp E. Connors Facility:[facility] Procedures DateProcedureProcedure DetailPerforming ClinicianStart: 36-41-8715Akhew hips bilateral with pelvis 2 viewsTodd Chary AGUILAR Work Phone: Start: 84-78-5212V-ray of lumbar spine, two or three viewsBenjamin Ball DO Work Phone: Start: 94-47-6712Gxzsaynfk colonoscopyBenjamin Ball DO Work Phone: Start: 28-77-0031SL FOOT LANDON MIN 3 VIEWSGeneric External Data Provider Plan of Treatment DateCare ActivityDetailAuthorStart: 05-19-2025 End: 31-45-6215Igrmopt encounter qspdokykp85/24/2025 9:00 AM EDT Office Visit [facility] [address] [place] [address] Elo Negron DO [address] [place] [address] ArrivedBEBOMS GralandJoan Access [facility] Comment on above:ArrivedStart: 04-10-2025 End: 91-99-0801Geualkf encounter xdkrjexsz27/15/2025 1:00 PM EDT Office Visit [facility] [address] [place] [address] Zayra Arce, [place] [address] [place] [address] Arrived[facility] Comment on above:ArrivedStart: 04-03-2025 End: 78-75-4865Uppskrc encounter pbexsnhmf19/08/2025 3:45 PM EDT Office Visit [facility] [address] [place] [address] Zayra Arce, [place] [address] [place] [address] [facility]Start: 89-25-8899LtxxwimqjKettering Health Behavioral Medical Centertart: 07-80-2378Plvrgds referral [facility] Work Phone: Start: 05-05-2024 End: 36-63-4324lesursnnyk97/10/2024 5:30 PM EDT Treatment [facility] [address] [place] [id number] Serafin Nickerson, PT [address] [place] [address] [facility] PTStart: 05-03-2024 End: 98-60-7492eofptbbqpz10/08/2024 5:30 PM EDT Evaluation [facility] [address] [place] [id number] Serafin Nickerson, PT [address] [place] [address] [facility] PTComment on above:ArrivedPatient EducationColon polyps Hemorrhoids ED Diverticulosis Know [facility] Work Phone: [facility] referralUniversity [facility] Work Phone: Payers DatePayer CategoryPayerPolicy [id number] Cross Blue [id number] BCBS [id number] 2022-Present [phone] [address] [place] [id number] [id number] 2..1.218546.3.57[id number] 2..1.310555.3.57[id number] 2..1.708021.3.57[id number] 2..1.916954.3.57[id number] 2..1.786852.3.57[id number] 2.0.1.849[id number] 2.0.1.4[id number] .0.1.858478.3.579.2.531 [id number] 2.0.1.652975.3.579.2.531 Social History DateTypeDetailFacilityTobacco smoking status NHISTobacco smoking consumption unknownNOMS HealthcareStart: 52-15-0143Ejd assigned at birthNot on [facility] HealthcareStart: 03-06-2025 End: 99-98-7788Kkmfrb identityNot on [facility] HealthcareStart: 08-30-2024 End: 78-11-2506Woplmxi smoking status NHISEx-smoker (finding)[facility] Centertart: 23-61-5430UolEajy (finding)[facility] Centertart: 97-91-2985Hcs Assigned At BirthMaleFEast [facility] Hospitaltart: 38-16-2234Uaetwbw smoking status NHISNever smoked tobaccoNOMS HealthcareStart: 26-75-8236Mnhgflh use and exposureUser of smokeless tobaccoNOMS HealthcareHistory of tobacco useChews TobaccoNOMS HealthcareStart: 03-06-2025 End: 18-51-6125Zueefphoc beverage intakeCurrent drinker of alcohol (finding)[facility] HealthcareStart: 03-06-2025 End: 26-71-5456Apzxxto of Social functionNOMS HealthcareStart: 30-60-1490MyvOsex [facility] Goals DatePatient GoalDesired Activity/State Clinical Notes 05-03-2024 to 05-19-2025 Note Date & TzsnIkstWevmptoh47-50-3906 History of Present illness Narrative* Jessica Fuentes - 05/19/2025 9:00 AM EDT Images from the original note were not included. Shane Gonzalez is a 54 y.o. male presents with chief complaint of left hip pain. HPI: Shane is a 54-year-old white male seen here today in referral from Zayra for evaluation of his lefthip. He has had pain and difficulty for over a year. He describes as groin pain. He does walk abnormal. He does have right knee pain and deformity, also has been dealing with some low back issues. Hestates that the sciatica on the right side has interestingly gone away. He has seen spine surgery. He denies any injury to the area. 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 He has been weighing his alternativessince he has had discussion with Zayra. He does have a lot of questions here today. SUBJECTIVE: MEDICATIONS: Current Outpatient Medications Medication Instructions lidocaine (Lidoderm) 5 % patch APPLY 1 PATCH TOPICALLY EVERY 24 HRS NEEDED FOR PAIN *LEAVE ON MOST PAINFUL AREA FOR UP TO 12 HRS meloxicam (Mobic) 15 MG tablet TAKE 1 TABLET BY MOUTH ONCE EVERYDAY WITH FOOD Misc Natural Products (OSTEO BI-FLEX ADV DOUBLE ST PO) Take by mouth ALLERGIES: Allergies[1] SURGICAL HISTORY: Surgical History[2] FAMILY HISTORY: Family History[3] SOCIAL HISTORY: Social History[4] Depression: Not on file REVIEW OF SYMPTOMS: The review of systems, history and current medications list are all reviewed today. OBJECTIVE: Visit Vitals Ht 5' 8 Wt 212 lb BMI 32.23 kg/m Smoking Status Never BSA 2.15 m Physical Exam His orthopedic exam here today reveals a pleasant somewhat anxious 54-year-old white male in no acute distress. He answers all questions appropriately. Internal and external rotation ofthe left hip is on the order of maybe 10 degrees and 25. Pain at the extremes of each. He has no trochanteric tenderness. The calf and thigh are supple. On the right side, his arc of motion is without difficulty. His neurocirculatory status is overall grossly intact. Range on this side is more like40 and 40 degrees. His bench test is stiff overall. He does have a little bit of a varus deformity of the right knee over the left. Examination of the x-rays from previous does show severe end stage osteoarthritis with essential bone on bone change of the left hip superiorly. Both hips are located. No significant arthritic changeon the right. X-rays of the lumbar spine does show some degenerative disc and degenerative joint change throughout. ASSESSMENT AND PLAN: Assessment/Plan Left hip pain, osteoarthritis with chronic chewing tobacco use. The findings are discussed. The treatment alternatives are outlined. We did discuss conservative versus surgical intervention for the treatment of his advanced left hip osteoarthritis. We did discussthis as an intrinsic and primary etiology of his pain and difficulty. He is unsure which way he would like to go. We did discuss a lot of the scenarios regarding logistics, expectations, time back towork regarding total hip arthroplasty. Ultimately he is given a card for nursing. If he should wantto go the surgical route, we do need to identify a date and work toward testing. If he does want togo the conservative route, discussion would be for corticosteroid injection. He does want time frame that an injection will help him. We did explain that we cannot provide this. He states very clearly that his biggest draw back is mental. He is unsure he is at a point where he is ready for a procedure of this magnitude. We did explain that he absolutely needs to be all in and prepared mentally ifhe does want to move forward. He does voice understanding. All of his questions are otherwise answer ed. He is discharged in stable condition here today. Follow up letter sent to physician Maximassistankeila. Follow up letter sent to Dr. Jeffers. [1] No Known Allergies [2] History reviewed. No pertinent surgical history. [3] Family History Problem Relation Name Age of Onset Diabetes Mother Cancer Father Diabetes Father [4] Social History Tobacco Use Smoking status: Never Smokeless tobacco: Current Types: Chew Vaping Use Vaping status: Never Used Substance Use Topics Alcohol use: Yes Drug use: Never Cosigned by Elo Negron DO at 05/23/2025 4:36 PM EDT documented in this encounterPike County Memorial HospitalJsoxhbxfms62-35-5481 History of Present illness Narrative* JEFF Azevedo - 04/10/2025 1:00 PM EDT Images from the original note were not included. Subjective Patient ID: Shane Gonzalez is a 54 y.o. male. Chief Complaint: Follow-up of the Lower Back (MRI [facility] 04/07/25) Last Surgery: No surgery found Last Surgery Date: No surgery found HPI Tirso comes in with his sister who is here for support and to take notes. Patient got no relief whatsoever with the prednisone he still continues to have daytime as well as some nighttime disruption with right sciatic nerve pain. His MRI done through [facility] in [place] reveals multiple level degenerative disc disease with more prevalence of neural foraminal stenosis associated with L3-4, L4-5, and L5-S1 right-sided greater than left. Objective Ortho Exam Patient has good internal external rotation of his right hip he has limited mobility with groin pain with attempts to internally rotate the left hip. He is wearing a knee brace on his right knee and has had troubles with this but not currently here for this problem. He has positive straight leg raise on the right negative on the left. He has no constant paresthesias of the lower extremities but intermittent into the feet and toes mainly across the heel and bottom of his feet. Seems to be worse when he is upright and walking he does have very flat plantar feet with pes planus and valgus hindfoot while barefoot he has a wide forefoot. Achilles and patellar tendon reflexes are intact. Image Results: MR lumbar spine wo contrast Narrative: EXAMINATION/TECHNIQUE: MR LUMBAR SPINE WO CONTRAST HISTORY: Low back pain. No recent injury. Right radiculopathy. COMPARISON: Radiographs 03/03/2025. RESULT: Counting reference: Lumbosacral junction. For the purposes of this report, L5-S1 is considered the last well-formed disc space. 5 lumbar type vertebral bodies. Alignment: Minimal S-shaped curvature. Straightening of the lumbar lordosis. Grade 1 anterolisthesis of L4 on L5 measuring around 3 to 4 mm. Grade 1 anterolisthesis of L5 on S1 measuring around 3 mm. Bone marrow signal: No evidence for acute or chronic fracture. No destructive osseous lesions. Areas of endplate degenerative signal especially at L5-S1. Mild multilevel disc height loss. Conus: The conus is within normal limits of signal intensity and morphology. Paraspinal soft tissues: Unremarkable. T12-L1: No significant canal or foraminal narrowing. L1-L2: Disc bulge. No significant canal or foraminal narrowing. L2-L3: Disc bulge. Possible tiny annular fissure. Ligamentous hypertrophy. Facet degenerative changes. No significant canal or foraminal narrowing. L3-L4: Broad-based disc bulge asymmetric toward the right. Endplate osteophytes. Ligamentous hypertrophy. Facet degenerative changes. Right subarticular narrowing, mild to moderate right foraminal narrowing, mild left foraminal narrowing, mild canal narrowing. L4-L5: Retrolisthesis. Broad-based disc bulge. Small superimposed disc protrusion in the right foraminal to far lateral zone with abutment of the exiting L4 nerve root. Endplate osteophytes. Ligamentous hypertrophy. Facet degenerative changes with facet joint effusions/synovitis. Severe right forami nal narrowing, mild to moderate left foraminal narrowing, without significant canal narrowing. L5-S1: Anterolisthesis with disc uncovering. Disc bulge. Endplate osteophytes. Facet degenerative changes. Severe right foraminal narrowing with abutment of the exiting L5 nerve root. Mild left foraminal narrowing, without significant canal narrowing. Sacrum and iliac wings: The visualized sacrum and iliac wings are unremarkable. Impression: Degenerative changes lumbar spine as discussed. ELECTRONICALLY SIGNED BY: Luis Corado MD Assessment/Plan Encounter Diagnoses: 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 No orders of the defined types were placed in this encounter. Follow up For issues regarding degenerative hip we would make referral to Dr. Negron. We will set up for evaluation by Dr. Escamilla neurosurgeon to discuss treatment options. He may refer you to pain management however I do feel that you have enough involvement that getting the surgical opinion 1st is appropriate. Avoid any heavy lifting that may agitate the nerve pain. Continue light stretching exercises and use of a cold pack to the lumbosacral region for 20 minutes several times aday and before bedtime. documented in this [facility]09-15-2025 Instructions* Patient Instructions* JEFF Azevedo - 04/10/2025 1:00 PM EDT We will set up for evaluation by Dr. Escamilla neurosurgeon to discuss treatment options. He may refer you to pain management however I do feel that you have enough involvement that getting the surgical opinion 1st is appropriate. Avoid any heavy lifting that may agitate the nerve pain. Continue light stretching exercises and use of a cold pack to the lumbosacral region for 20 minutes several times aday and before bedtime. documented in this [facility]08-26-2025 Telephone encounter Note* Telephone Encounter - JEFF New - 03/21/2025 8:54 AM EDT Parker called stating that his R leg is now almost constantly numb and his pain is a little worse even after taking his steroid Zayra prescribed at his [facility]. I spoke to Zayra and he suggests moving forward with the lumbar MRI at [facility]. I asked him the questions... -He smokes and he has his nipples pierced and an ear piercing. Blanquita[facility] Thank you~ [facility] HospitalGcnxesyhms80-56-5164 Miscellaneous Notes* Telephone Encounter - JEFF New - 03/21/2025 8:54 AM EDT Parker called stating that his R leg is now almost constantly numb and his pain is a little worse even after taking his steroid Zayra prescribed at his [facility]. I spoke to Zayra and he suggests moving forward with the lumbar MRI at [facility]. I asked him the questions... -He smokes and he has his nipples pierced and an ear piercing. Blanquita-please move forward with Lumbar MRI @ [facility] Joan. Thank you~ documented in this encounterPike County Memorial HospitalPvidvnfcxo53-90-6027 History of Present illness Narrative* JEFF Azevedo - 03/06/2025 3:30 PM EDT GENERAL HISTORY AND PHYSICAL: NAME: Shane Gonzalez : 1970 HISTORY OF PRESENT ILLNESS: Shane Gonzalez is an 54 y.o. male is here for orthopedic evaluation Lower back and right sciatic nerve pain which has been going on for nearly 2 weeks now he has struggling with being able to sit or even ambulate he has troubles at nighttime. 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 He has pain that shoots all the way down into both feet but mainly right gluteal and posterior thigh pain he does relate problems of his low back in his gone to chiropractics. He also describes pain in his feet and has a very wide and flat foot which he believes is affecting his gait as well. He had remote injury this past year or so falling out of a tree stand while deer hunting proximally 15 ft landing on both feet and falling backwards which he was seen by his chiropractor and seemed to get over the acute injury. Patient is not diabetic. He had been given a cortisone shot in the thigh after seeing his chiropractor as well as given Flexeril and hydrocodone which he is unable to take and operate his machinery. He relays even having troubles using his brine maker from the balancing across the yd. PAST MEDICAL HISTORY: Past Medical History: Diagnosis Date Arthritis PAST SURGICAL HISTORY: History reviewed. No pertinent surgical history. SOCIAL HISTORY: Social History Occupational History Not on file Tobacco Use Smoking status: Never Smokeless tobacco: Current Types: Chew Substance and Sexual Activity Alcohol use: Yes Drug use: Never Sexual activity: Yes Partners: Female ALLERGIES: No Known Allergies MEDICATIONS: Current Outpatient Medications Medication Instructions cyclobenzaprine (FLEXERIL) 10 mg, Every 12 hours HYDROcodone-acetaminophen (Freeman) 5-325 MG tablet TAKE 1 TABLET BY MOUTH EVERY 4-6 HOURS NEEDED FOR PAIN FOR 3 DAYS lidocaine (Lidoderm) 5 % patch APPLY 1 PATCH TOPICALLY EVERY 24 HRS NEEDED FOR PAIN *LEAVE ON MOST PAINFUL AREA FOR UP TO 12 HRS meloxicam (Mobic) 15 MG tablet TAKE 1 TABLET BY MOUTH ONCE EVERYDAY WITH FOOD predniSONE (Deltasone) 10 MG tablet Take 5 tabs p.o. daily x3 days Take 4 tabs p.o. daily x3 days Take 3 tabs p.o. daily x3 days Take 2 tabs p.o. daily x3 days Take 1 tab p.o. daily x3 days REVIEW OF SYSTEMS: Review of Systems General: Denies appetite or significant weight change. Denies fever, chills or night sweats. Denies lightheadedness. ENT: Denies dry mouth, sore throat or swollen glands. Denies difficulty swallowing. Denies ear pain. Respiratory: Denies chest pain, SOB, cough or wheezing. Denies asthma or pneumonia symptoms. Cardiovascular: Denies CP or palpitations. No syncope or dyspnea on exertion. Gastrointestinal: Denies nausea or vomiting. Denies heartburn or abdominal pain. Denies diarrhea. Genitourinary: Denies frequent or painful urination. Musculoskeletal: See HPI for comments. Integumentary: Denies rash, lesion or skin infection. Neurologic: Denies dizziness, headache or seizure history. Vitals: Body mass index is 32.23 kg/m . PHYSICAL EXAM: Physical Exam Patient has good internal external rotation of his right hip he has limited mobility with groin pain with attempts to internally rotate the left hip. He is wearing a knee brace on his right knee and has had troubles with this but not currently here for this problem. He has positive straight leg raise on the right negative on the left. He has no constant paresthesias of the lower extremities but intermittent into the feet and toes mainly across the heel and bottom of his feet. Seems to be worse when he is upright and walking he does have very flat plantar feet with pes planus and valgus hindfoot while barefoot he has a wide forefoot. Achilles and patellar tendon reflexes are intact. XR hips bilateral 2 views Imaging Result: AP pelvis and bilateral frog views demonstrating kbmm-pu-ppgh changes to the left hip with noted proximal migration. Associated lumbar degenerative disc disease on imaging with AP pelvis. No acute fracture bony tumor seen. Right hip showing only minimal arthritic findings. Orders Placed This Encounter Procedures XR hips bilateral 2 views Reason for exam:: pain XR hips bilateral 2 views Imaging Result: AP pelvis and bilateral frog views demonstrating qciy-gf-wdpe changes to the left hip with noted proximal migration. Associated lumbar degenerative disc disease on imaging with AP pelvis. No acute fracture bony tumor seen. Right hip showing only minimal arthritic findings. ASSESSMENT: Primary localized osteoarthrosis of the hip, left 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 Low back pain, unspecified back pain laterality, unspecified chronicity, unspecified whether sciatica present Images of his lumbar spine were reviewed they also demonstrate significant degenerative disc disease of multiple levels and facet hypertrophy with collapse of several Levels no acute fracture seen. PLAN: Take prednisone as instructed would write down dosing and symptoms according to your medication schedule. We would look for improvement by day 2 with the severe pain and disability affecting the right leg. Work on home exercise flexibility and stretching and use of a cold pack 20 minutes several times a day and before bedtime would avoid heat unless followed by stretching and cold pack. May hold a nti-inflammatory medication until you get down to 1 pill daily for the last 3 days of the prednisone. We will follow up in 3-4 weeks to note progress and consider MRI if symptoms return without improvement. JEFF Azevedo documented in this encounterPike County Memorial HospitalReruigqwai31-89-4736 Instructions* Patient Instructions* JEFF Azevedo - 03/06/2025 3:30 PM EDT Take prednisone as instructed would write down dosing and symptoms according to your medication schedule. We would look for improvement by day 2 with the severe pain and disability affecting the right leg. Work on home exercise flexibility and stretching and use of a cold pack 20 minutes several times a day and before bedtime would avoid heat unless followed by stretching and cold pack. May hold a nti-inflammatory medication until you get down to 1 pill daily for the last 3 days of the prednisone. We will follow up in 3-4 weeks to note progress and consider MRI if symptoms return without improvement. documented in this encounterPike County Memorial HospitalXovnlcsqjf92-17-6719 [place] [address] Colonoscopy Procedure Report Signed Patient: Shane Gonzalez MR#: [id number] : 1970 Acct:[id number] Age/Sex: 54 / M Adm Date: 5 Loc: Room: Type: [facility] Attending Dr: Cristina Mondragon MD Copies to: DO Cristina Franklin MD~ Colonoscopy Date/Provider 08/30/2024 Cristina Mondragon MD Colonoscopy Findings: Procedure: Colonoscopy with polypectomy Indication: 54-year-old man with family history of colon cancer(colon) here for screening colonoscopy Pre-operative diagnosis: family history of colon cancer(colon) Post-operative diagnosis: Colonic polyps, diverticulosis, internal hemorrhoids. Sedation: propofol per anesthesia dept O2 oximetry, hemodynamic monitoring was performed pre, during, and post procedure. Patient was identified, H&P completed, patient was given full explanation of the procedure as well as associatedrisks and written consent wasobtained prior to procedure. Patient expressed complete understanding of the procedure as well as alternatives to the procedure and to anesthesia and agreed to proceed with the procedure as indicated. Patient was immediately reassessed prior to IV sedation. Under IV sedation, patient was placed in the left lateral decubitus position. Digital rectal exam was performed and normal. Colonoscope was inserted and passed proximally to the cecum, which was identified by the ileocecal valve, appendiceal orifice and cecal floor. Colonoscope was slowly withdrawnwith the findings as below. Monitor bowel prep score was good. Findings: Cecum: Normal. Ascending colon: A 1 cm polyp removed using cold snare Hepatic flexure: Normal. Transverse colon: Normal. Splenic flexure: Normal. Descending colon: Normal. Sigmoid colon: Diverticulosis. 2 polyps(4-6 mm) removed using cold snare Rectum: Normal. Retroflexed views: Rectum did show internal hemorrhoids. Biopsy taken: No Complications: None EBL: None Recommendations: -Repeat colonoscopy in 3 years -Follow up pathology Following a period of recovery, patient was seen and given full explanation of the procedure. Patient tolerated the procedure well and will be discharged in satisfactory, stable condition. Cristina Mondragon M.D. Documented By: Cristina Mondragon MD 08/30/24 0835 Signed By: 08/30/24 0905 [facility]02-04-2025 [place] [address] Gastroenterology H&P Signed Patient: Shane Gonzalez MR#: [id number] : 1970 Acct:[id number] Age/Sex: 54 / M Adm Date: 5 Loc: Room: Type: [facility] Attending Dr: Cristina Mondragon MD Copies to: DO Cristina Franklin MD~ Date of Service: 08/30/2024 HISTORY & PHYSICAL: Patient's history with special attention to the cardiovascular, pulmonary systems and the current problem was reviewed with the patient immediately prior to the procedure. Present medications and doses reviewed in the EMR. Allergies and pertinent laboratory tests were also re viewedat this time in the EMR. The physical examination, as below, was then performed. Indication, assessment and HPI: 54-year-old man with family history of colon cancer(colon) here forscreening colonoscopy Family history of GI malignancy? Yes PHYSICAL EXAMINATION General appearance: NAD Skin: No jaundice Head: NC/AT Eyes: Anicteric Neck: Supple Lungs: Normal respiratory effort, no use of accessory muscles Abdomen: nondistended Neuro: Ox3. REVIEW OF SYSTEMS Constitutional: Denies malaise, fevers Cardiovascular: Denies chest pain, palpitations Respiratory: Denies shortness of breath, wheezing Gastrointestinal: As per HPI Genitourinary: Denies dysuria, polyuria Musculoskeletal: Denies joint swelling, joint stiffness Neurological: Denies confusion, numbness, tingling Endocrine: Denies fatigue Written informed consent obtained from the [patient]. Risks (including but not limited to perforation, infection, bloating, bleeding, need for emergent surgery and loss of life), benefits and alternatives explained and questions answered. The [patient] verbalized understanding. Based on history patient is an appropriate candidate for the procedure. Cristina Mondragon M.D. Documented By: Cristina Mondragon MD 08/30/24 0834 Signed By: 08/30/24 0835 [facility]12[facility] Evaluation note* Diagnosis Onset Date Resolution Status Admit Date DEANNA (generalized anxiety disorder) acuteDecember 2023 2:50pmObesityacuteDecember 2023 2:50pmPrimary osteoarthritis of both kneesacuteDece[facility] 20[facility] 2:50pmScreening for colon canceracuteDecehonorhealth [facility] 2023 2:50pmScreening PSA (prostate specific antigen) acuteDecehonor[facility] 2023 2:50pmWellness examinationacuteDecehonorhealth [facility] 2023 2:50pm [facility] Work Phone: [phone]) 581-164110-08-2024 History of Present illness Narrative* Serafin Nickerson, PT - 05/03/2024 5:30 PM EDT Physical Therapy Physical Therapy Evaluation Visit Patient Name: Shane Gonzalez Today's Date: 05/03/2024 Reason: Left > Right foot pain Visit number: 1 Subjective: Interim History: Shane is a 53 yo male that presents today with left>right foot pain. Onset ~6 weeks prior. No specific DANE. Left side was much worse. Recently was to the point he had severe painwith any amount of weightbearing through the left heel. Radiograph showed small spurs per report. Treatment has included prednisone, and anti-inflammatory which have improved symptoms ~85% so far. Heis pleased with this. Has also been complaint [...] Please sign below. Date: documented in this encounterNONV HealthcareEvaluation note* Diagnosis Left foot pain- Primary Pain in soft tissues of limb Right foot pain Pain in soft tissues of limb documented in this encounter [facility] HealthcareEvaluation noteNo assessment information availableThe [facility] Work Phone: Evaluation note* Diagnosis Primary localized osteoarthrosis of the hip, left- Primary 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 Low back pain, unspecified back pain laterality, unspecified chronicity, unspecified whether sciatica present documented in this encounter [facility]* Diagnosis 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- Primary documented in this encounter [facility]* Diagnosis Primary osteoarthritis of left hip- Primary Left hip pain Pain in joint, pelvic region and thigh Chewing tobacco nicotine dependence without complication documented in this encounter [facility] HealthcareHistory and physical note Author Cristina Mondragon [facility] HospitalNote Date/TimeFebruary 2024 8:35am [place] [address] Gastroenterology H&P Signed Patient: Shane Gonzalez MR#: [id number] : 1970 Acct:[id number] Age/Sex: 54 / M Adm Date: 5 Loc: Room: Type: [facility] Attending Dr: Cristina Mondragon MD Copies to: Dirk Jeffers,DO Cristina Mondragon MD~ Date of Service: 08/30/2024 HISTORY & PHYSICAL: Patient's history with special attention to the cardiovascular, pulmonary systems and the current problem was reviewed with the patient immediately prior to the procedure. Present medications and doses reviewed in the EMR. Allergies and pertinent laboratory tests were also re viewedat this time in the EMR. The physical examination, as below, was then performed. Indication, assessment and HPI: 54-year-old man with family history of colon cancer(colon) here forscreening colonoscopy Family history of GI malignancy? Yes PHYSICAL EXAMINATION General appearance: NAD Skin: No jaundice Head: NC/AT Eyes: Anicteric Neck: Supple Lungs: Normal respiratory effort, no use of accessory muscles Abdomen: nondistended Neuro: Ox3. REVIEW OF SYSTEMS Constitutional: Denies malaise, fevers Cardiovascular: Denies chest pain, palpitations Respiratory: Denies shortness of breath, wheezing Gastrointestinal: As per HPI Genitourinary: Denies dysuria, polyuria Musculoskeletal: Denies joint swelling, joint stiffness Neurological: Denies confusion, numbness, tingling Endocrine: Denies fatigue Written informed consent obtained from the [patient]. Risks (including but not limited to perforation, infection, bloating, bleeding, need for emergent surgery and loss of life), benefits and alternatives explained and questions answered. The [patient] verbalized understanding. Based on history patient is an appropriate candidate for the procedure. Cristina Mondragon M.D. Documented By: Cristina Mondragon MD 08/30/24 0834 Signed By: <Electronically signed by Cristina Mondragon MD> 08/30/2435 [facility] Work Phone: Hospital Discharge instructions Additional Instructions DISCHARGE INSTRUCTIONS FOR COLONOSCOPY WHAT TO EXPECT: - You may feel full, gassy or cramping after your procedure. In some cases, this may be from a few hours to a day. Walking may help relieve the discomfort. - If you have polyp(s) removed you may note some minor bloody discharge after your first bowel movements. - You should begin to recover from anesthesia within 1 hour of the procedure, however may feel groggy for the next 24 hours. DO's AND DON'Ts: - Call your doctor right away if you have a hard abdomen, severe pain, are passing lots of bright red blood or clots. - Call your doctor if you develop any rashes, hives or difficulty breathing. - Let your doctor know if you have not had a bowel movement by 3 days after your procedure. - If you take 81 mg aspirin for your heart it is safe to resume this medication. - If you take other blood thinner medications your doctor will instruct you when these can safely be resumed. - Do NOT drive for 24 hours. - Do NOT operate machinery such as power tools, lawn mowers, snow blowers, sewing machines, etc. for 24 hours. - Avoid alcoholic beverages and drugs for allergies, nerves, or sleep. - Do NOT stay alone. Do NOT leave your child unattended. - Do NOT make important personal or business decisions or sign any legal documents. - Eat solid foods and drink liquids in smaller amounts than usual until normal appetite returns. If you should experience an upset stomach, liquids high in sugar content (soda, Adriano-Aid, non-acid juices) are recommended. - You can resume normal activities tomorrow. FOLLOW UP & RECOMMENDATIONS: -Notify the doctor if you have any problems. -Repeat colonoscopy in 3 years. -Follow up with PCP. -Office number [phone]. [facility] Work Phone: Hospital Discharge instructions Additional Instructions You were seen and evaluated in the ED for a musculoskeletal injury. It is important to treat your symptoms with RICE therapy. This consists of Resting when available, Icing the affected area, wearing Compression if applicable such as a sleeve or MARLENE-bandage, and Elevating the affected extremity. Continue to use Tylenol and other anti-inflammatories such as ibuprofen, naproxen, diclofenac, etc It is very important that you follow up with your primary care provider in the next 1-2 days unless instructed to do otherwise. If you do not have a primary care provider, you can contact the [facility] clinic and ask about being established for primary care services. If you require specialist follow up, such as with an orthopedic physician, community health agent, urologist, or other medical specialty, you should contact the specialty clinic as soon as possible to schedule a follow up appointment. If you are established with a specialist, you can contact your preferred physician for follow up. If you are not already established with the specialist you need, you may have contact information provided to you with these discharge instructions. If you are being prescribed medications, take exactly as prescribed. Antibiotics, if prescribed, should be taken until the entire course is completed. You should not have left over antibiotics. Continue to take any previously prescribed home medications unless instructed otherwise. If you are experiencing fever or mild to moderate pain, you should first take Tylenol or ibuprofen available [id number]-rkn-[id number]. Medications, if prescribed to treat pain from the emergency department, are intended to provide relief for severe pain that is not relieved by other methods of pain relief, you should use these medications cautiously as many are known to cause sedation/sleepiness, increased risk for falls, and other effects such as constipation. If your symptoms worsen please return to the ED or if you have any other concernsUniversity Hospitals [facility] Work Phone: Reason for referral (narrative)No reason for referral information availableUniversity Hospitals [facility] Work Phone: Summary Purpose Family History Relationship Condition Age at Onset Recorded Date/T rohith Not Specified Malignant neoplasm Unknown motherHeart diseaseUnknownDiabetes mellitusUnknownfatherMalignant neoplasm of colonUnknown Advance Directives Advance Directive Response Recorded Date/ Time Advance Directives No May 9:34am Advance Directive Response Recorded Date/ Time Advance Directives No May 10:34am Chief Complaint and Reason for Visit Chief Complaint Admit Date CC Adult Risk Stratification June 222023 2:34pm Est/Wellness June 29, 2024 2 :50pm Z00.00 R53.83 July 01, 2024 1 2:39pm Screening August 30, 2024 6 :44am Screening August 30, 2024 8 :34am Reason for Visit Admit Date DEANNA (generalized anxiety disorder) Decem kya 2023 2:50pm Obesity June 29, 2024 2 :50pm Primary osteoarthritis of both knees Dec ember 2023 2:50pm Screening for colon cancer June 29, 2024 2:50pm Screening PSA (prostate specific antigen ) June 29, 2024 2:50pm Wellness examination June 29, 2024 2:50pm Chief Complaint Admit Date hip pain March 03, 2025 12: 52pm Additional Source Comments (unrecognized sect ion and content) No Status Records FoundNo Status Records FoundNo Status Records FoundNo Status Records Found INFORMATION SOURCE (unrecogn ized section and content) DATE CREATED AUTHOR 06/02/2019 [facility] DATE CREATED AUTHOR AUTHOR'S ORGANIZ ATION 12/03/2022 [facility] DATE CREATED AUTHOR AUTHOR'S ORGANIZ ATION 03/05/2025 [facility] DATE CREATED AUTHOR AUTHOR'S ORGANIZ ATION 05/21/2025 [facility] EPIC Reason for Visit (unrecogniz ed section and content) SpecialtyDiagnoses / ProceduresReferred By ContactReferred To ContactPhysical Therapy Diagnoses Metatarsalgia, left foot Procedures [place] PHYS THERAPY EVALUATION Dayne Pardo MD [address] [place] [address] [place] [address] Arie Xiao, PT Referral IDStatusReasonStart DateExpiration DateVisits RequestedVisits [id number] Follow-upMRI [facility] 04/07/25ReasonOnset DateCommentsIncreased pain/numbness in R leg03/21/2025ReasonCommentsOsteoarthritis Care Teams (unrecognized sec tion and content) Team Status: Active Member Role Status Dates Dirk Jeffers DO Primary Care Provider Active Team Status: Inactive Member Role Status Dates Dirk Jeffers DO Primary Care Provider Active Start: March 03, 2025 End: March 03, 2025Lisandro Mcgrath ProviderActiveStart: March 03, 2025 End: March 03, 2025 Team Status: Active Member Role Status Dates Dirk Jeffers DO Primary Care Provide r, Attending Provider Active Start: June 22, 2024 Team Status: Inactive Member Role Status Dates Dirk Jeffers DO Primary Care Provide r, Attending Provider Active Start: June 29, 2024 End: June 29, 2024 Team Status: Inactive Member Role Status Dates Dirk Jeffers DO Primary Care Provide r, Attending Provider Active Start: July 01, 2024 End: July 01, 2024 Team Status: Inactive Member Role Status Dates Dirk Jeffers DO Primary Care Provider Active Start: August 30, 2024 End: August 30, 2024ImaSarath Fall ProviderActiveStart: August 30, 2024 End: August 30, 2024 Team Status: Active Member Role Status Dates Dirk Jeffers DO Primary Care Provider Active Start: August 30, 2024 Imad Alanna , Veronicaending Provider, Other ProviderActiveStart: August 30, 2024 Team MemberRelationshipSpecialtyStart DateEnd Date Dirk Jeffers DO [address] [phone] PCP - GeneralInternal Medicine03/06/25Team MemberRelationshipSpecialtyStart Date End Date Dirk Jeffers DO [address] [place] [phone] PCP - GeneralInternal Medicine03/06/25Team MemberRelationshipSpecialtyStart Date End Date Dirk Jeffers DO [address] [place] [phone] PCP - GeneralInternal Medicine03/06/25Team MemberRelationshipSpecialtyStart Date End Date Dirk Jeffers DO [address] [facility] [place] [phone] PCP - GeneralInternal Medicine03/06/25Te MemberRelationshipSpecialtyStart Date End Date Dirk Jeffers, [address] [facility] [place] [phone] [facility] - [facility]03/06/25Te MemberRelationshipSpecialtyStart Date End Date Dirk Jeffers, DO [address] [facility] [place] [address] PCP - [facility]03/06/25Te MemberRelationshipSpecialtyStart Date End Date Dirk Jeffers, DO [address] [facility] [place] [address] PCP - [facility]03/06/25 Goals (unrecognized section and content) Goals may be documented in a n alternate section FOR RECORDS PERTAINING TO PATIENTS WHO ARE [...] BE BASED ON THE PRIMARY CLINICAL RECORDS. [facility]. provides no warranty or guarantee of the accuracy or completeness of information in this document.
--- OUTSIDE RECORDS SUMMARY | 2025-07-08 09:53 | XMS_ITS | Patient Health Record ---
Author Organization [facility] Address [address] [facility] [address] [place] [address] Care Team Providers Care Brick Baker Name Role Phone Willi Escamilla Primary Care Provider Reason For Referral No Information Social History Social History Tobacco Use:Social InfoQuestionAnswerNotesTobacco Use/Smoking? How long has it been since you last smoked?> 10 years Problems Problem Type SNOMED Code ICD Code Onset Dates Problem Status W/U Status Risk Notes Problem Sciatica (62212353) Lumbago of lumbar reg ion with sciatica (M54.40) ActiveconfirmedProblemAcquired spondylolisthesis (704877903)Spondylolisthesis of lumbar region (M43.16)Activeconfirmed Encounters Encounter Location Date Provider Diagnosis [facility] [address] [facility] [address] [place] [address] 05/03/2025 Willi Escamilla Lumbago of lumbar re gion with sciatica M54.40 and Spondylolisthesis of lumbar region M43.16 Assessments Encounter Date Diagnosis (ICD Code) Assessment Notes Treatment Notes Treatment Clinical Notes Section Notes 05/03/2025 Spondylolisthesis of lumbar josh on (ICD-10 - M43.16) NUMBER OF DIAGNOSES AND MANAGEMENT OPTIONS: I spent 60 minutes with the patient and family with over 50% for direct face to face counseling andcoordination of care. 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 of pain down the right leg and back failing steroid oral treatments not able to walk very far with numbness down the right leg feels better sitting MARLEN 20 his pain is getting better but he still has numbness when he walks down the right leg he is try chiropractic treatment he has intact range of motion in the lumbar spine he may need left hip surgery with Luis Fernando sign positive on the left I reviewed his MRI April 07 from [facility] imaging 4 mm grade 1 spondylolisthesis L4-5 and 3 mm grade 1 spondylolisthesis L5-S1 with severe right nerve root impingement at L4-5 and at L5-S1 as well x-ray confirming March 03, 2025 at [facility] with scoliosis and spondylolisthesis 5 mm at L4-5 surgery as last option discussed if he fails conservative treatment and I would pursue left hip surgery if he needs before any back fusion or decompression type surgery. Established problems stable as noted above. Amount/Complexity of data reviewed: I reviewed radiology tests as above. I reviewed clinical lab and medicine tests I reviewed and summarized old records and gathered history from someone other than the patient, including] and discussed with another MD health care provider as needed including I performed independent visualization image and reports as noted above. Risk of complications and morbidity/mortality is high in this patient with an abrupt change in neurologic status with threat to bodily function and/or life. Other chronic illness noted above. Diagnostic procedures: reviewed above. Management options: to include over the counter drugs, prescription drug management, physical/occupational therapy, possible elective major surgery. 05/03/2025Lumbago of lumbar region with sciatica (ICD-10 - M54.40) NUMBER OF DIAGNOSES AND MANAGEMENT OPTIONS: I spent 60 minutes with the patient and family with over 50% for direct face to face counseling andcoordination of care. 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 of pain down the right leg and back failing steroid oral treatments not able to walk very far with numbness down the right leg feels better sitting MARLEN 20 his pain is getting better but he still has numbness when he walks down the right leg he is try chiropractic treatment he has intact range of motion in the lumbar spine he may need left hip surgery with Luis Fernando sign positive on the left I reviewed his MRI April 07 from [facility] imaging 4 mm grade 1 spondylolisthesis L4-5 and 3 mm grade 1 spondylolisthesis L5-S1 with severe right nerve root impingement at L4-5 and at L5-S1 as well x-ray confirming March 03, 2025 at [facility] with scoliosis and spondylolisthesis 5 mm at L4-5 surgery as last option discussed if he fails conservative treatment and I would pursue left hip surgery if he needs before any back fusion or decompression type surgery. Established problems stable as noted above. Amount/Complexity of data reviewed: I reviewed radiology tests as above. I reviewed clinical lab and medicine tests I reviewed and summarized old records and gathered history from someone other than the patient, including] and discussed with another MD health care provider as needed including I performed independent visualization image and reports as noted above. Risk of complications and morbidity/mortality is high in this patient with an abrupt change in neurologic status with threat to bodily function and/or life. Other chronic illness noted above. Diagnostic procedures: reviewed above. Management options: to include over the counter drugs, prescription drug management, physical/occupational therapy, possible elective major surgery. Plan Of Treatment No Information Insurance Providers Payer Name Payer Address Payer Phone Subscriber Number Group Number Insured Name Patient Relationship to Insured Coverage Start Date Coverage End Date [address] [place] [address] [id number] Latonya Hazel - patient is the insured
--- OUTSIDE RECORDS SUMMARY | 2025-07-08 09:53 | XMS_ITS | Encounter Summary ---
Author Organization [facility] Address [address] [facility] [place] [address] Care Team Providers Care Jitney Driver Name Role Phone Dirk Jeffers DO Primary Care Provider [phone] Encounter Details DateTypeDepartmentCare Team (Latest Contact Info)Nyxoybqnjrh20/03/2025Travel Social History Tobacco UseTypesPacks/DayYears UsedDateSmoking Tobacco: NeverSmokeless Tobacco: CurrentChewAlcohol UseStandard Drinks/WeekCommentsYes0 (1 standard drink = 0.6 oz pure alcohol)Sex and Gender InformationValueDate RecordedSex Assigned at BirthNot on fileLegal LehShzd7110/08/2022 6:42 PM EDTGender IdentityNot on file Sexual OrientationNot on filedocumented as of this encounter Plan of Treatment DateTypeDepartmentCare Team (Latest Contact Info)Fkmmwkeyaif42/12/2026 10:45 AM ESTOffice Visit [facility] [address] [facility] [place] [phone] Jan Park DO [address] [place] [address] documented as of this encounter Visit Diagnoses Not on filedocumented in this encounter Care Teams Team MemberRelationshipSpecialtyStart DateEnd Date Dirk Jeffers DO [address] [facility] [place] [phone] PCP - GeneralInternal Medicine03/06/25documented as of this encounter
--- OUTSIDE RECORDS SUMMARY | 2025-07-08 09:53 | XMS_ITS | Encounter Summary ---
Author Organization [facility] Address [address] [facility] [place] [address] Care Team Providers Care Sand Cleaning Machine Operator Name Role Phone Dirk Jeffers Primary Care Provider [phone] Reason for Referral * Rehabilitation - Outpatient (Routine) - AuthorizedSpecialtyDiagnoses / ProceduresReferred By ContactReferred To ContactPhysical Therapy Diagnoses Aftercare following left hip joint replacement surgery Procedures [place] OFFICE/OUTPATIENT NEW HIGH MDM 60 MINUTES Jan Park DO [address] [place] [address] Phone: tel: fax: Regine Lloyd, PT [address] [place] [address] Phone: tel: fax: Referral IDStatusReasonStart DateExpiration DateVisits RequestedVisits [id number] Consult and Treat /999 Encounter Details DateTypeDepartmentCare Team (Latest Contact Info)Kzurrmkiemf22/12/2025Orders Only [facility] [address] [place] [phone] Jan Park DO [address] [place] [address] Aftercare following left hip joint replacement surgery (Primary Dx) Social History Tobacco UseTypesPacks/DayYears UsedDateSmoking Tobacco: NeverSmokeless Tobacco: CurrentChewAlcohol UseStandard Drinks/WeekCommentsYes0 (1 standard drink = 0.6 oz pure alcohol)Sex and Gender InformationValueDate RecordedSex Assigned at BirthNot on fileLegal CspPdfi1610/08/2022 6:42 PM EDTGender IdentityNot on file Sexual OrientationNot on filedocumented as of this encounter Plan of Treatment DateTypeDepartmentCare Team (Latest Contact Info)Dyjhfgnqjoh68/12/2026 10:45 AM ESTOffice Visit [facility] [address] [place] [phone] Jan Park DO [address] [place] [address] NameTypePriorityAssociated DiagnosesOrder ScheduleAmbulatory referral to Physical TherapyOutpatient ReferralRoutine Aftercare following left hip joint replacement surgery Expected: 07/07/2025 (Approximate), Expires: 01/05/2026documented as of this encounter Visit Diagnoses Diagnosis Aftercare following left hip joint replacement surgery- Primary documented in this encounter Care Teams Team MemberRelationshipSpecialtyStart DateEnd Date Dirk Jeffers DO [address] [place] [phone] PCP - GeneralInternal Medicine03/06/25documented as of this encounter
--- OUTSIDE RECORDS SUMMARY | 2025-07-08 09:53 | XMS_ITS | Encounter Summary ---
Author Organization [facility] Address [address] [facility] [place] [address] Care Team Providers Care Automotive Engineering Teacher Name Role Phone Dirk Jeffers DO Primary Care Provider [phone] Reason for Visit * ReasonOnset DateCommentsPre-Surgery Check In07/07/2025 Encounter Details DateTypeDepartmentCare Team (Latest Contact Info)Ohdsjgcqhgk76/12/2025Telephone [facility] [address] [address] Jan Park DO [address] [place], [place] [id number] Pre-Surgery Check In Social History Tobacco UseTypesPacks/DayYears UsedDateSmoking Tobacco: NeverSmokeless Tobacco: CurrentChewAlcohol UseStandard Drinks/WeekCommentsYes0 (1 standard drink = 0.6 oz pure alcohol)Sex and Gender InformationValueDate RecordedSex Assigned at BirthNot on fileLegal DitCcne0310/08/2022 6:42 PM EDTGender IdentityNot on file Sexual OrientationNot on filedocumented as of this encounter Plan of Treatment DateTypeDepartmentCare Team (Latest Contact Info)Aypnrgjcnjd93/12/2026 10:45 AM ESTOffice Visit [facility] [address] [place] [address] Jan Park DO [address] [place], [place] [id number] documented as of this encounter Visit Diagnoses Not on filedocumented in this encounter Care Teams Team MemberRelationshipSpecialtyStart DateEnd Date Dirk Jeffers DO [address] [place] [address] PCP - GeneralInternal Medicine03/06/25documented as of this encounter
--- OUTSIDE RECORDS SUMMARY | 2025-07-08 09:53 | XMS_ITS | Clinical Summary ---
Author Organization [facility] Address [facility] [facility], [address] [place] [address] Care Team Providers Care [employer] Driver Name Role Phone Vipul Olea MD Primary Care Provider [phone] Allergies No known active allergies Medications MedicationSigDispense QuantityRefillsLast FilledStart DateEnd DateStatus cyclobenzaprine (FLEXERIL) 10 MG tablet Take 0.5 tablets by mouth 3 times daily as needed for Muscle spasms. 15 tablet ctive Social History Tobacco UseTypesPacks/DayYears UsedDateSmoking Tobacco: NeverSmokeless Tobacco: CurrentChewAlcohol UseStandard Drinks/WeekCommentsNo0 (1 standard drink = 0.6 oz pure alcohol)Sex and Gender InformationValueDate RecordedSex Assigned at Not on fileLegal XlkWkdm3909/05/2012 4:24 PM ESTGender IdentityNot on fileSexual OrientationNot on file Last Filed Vital Signs Vital SignReadingTime TakenCommentsBlood Zjmbmeod143/7611 10:25 AM EST Ukaax198506/17/2014 10:25 AM PMXFeylpxxazpg86.8 ??C (98.2 ??F)06/17/2014 10:25 AM ESTRespiratory Hgfq700108/17/2013 10:25 AM ESTOxygen Ltznqytzoe65%06/17/2014 9:00 AM ESTInhaled Oxygen Concentration--Bmtorc91.2 kg (190 lb)06/17/2014 9:00 AM EST Siwfnt273.7 cm (5' 8 )06/17/2014 9:00 AM ESTBody Mass Index28.8906/17/2014 9:00 AM EST Plan of Treatment Not on file Care Teams Team MemberRelationshipSpecialtyStart DateEnd Date Vipul Olea MD PCP - Igihxqd97/22/14
--- OUTSIDE RECORDS SUMMARY | 2025-07-08 09:53 | XMS_ITS | Patient Health Record ---
Author Organization [facility] [place] Address [address] [place] [address] Care Team Providers Care Engineering Research Manager Name Role Phone None, Unknown or Primary Care Provider Unavailab le Reason For Referral No Information Medications Medication SIG (Take, Route, Frequency, Duration) Notes Start Date End Date Status methylPREDNISolone 4 MG as directed Orally 04/26/2024Not-TakingMeloxicam 15 MG1 tablet Orally Once a day; Duration: 30 days 04/26/2024ctive Social History Tobacco Use: Social History Observation Description Date Details (start date - stop date) Current Smoker NA - NA Tobacco Control (Standard) Question Answer Notes Tobacco use: Current every day smoker Problems Problem Type SNOMED Code ICD Code Onset Dates Problem Status W/U Status Risk Notes Problem Contracture of joint of right ankle (disorder) (871846046125223) Contracture, right ankle (M24.571) ActiveconfirmedProblemContracture of joint of left ankle (disorder) (086685821946640)Contracture, left ankle (M24.572)ActiveconfirmedProblemPain in left foot (196466952086089)Left foot pain (M79.672)Activeconfirmed Plan Of Treatment Pending Test Test Name Order Date XR Foot LT (3 views) * 04/26/2024 XR foot LANDON min 3V 04/26/2024 Insurance Providers Payer Name Payer Address Payer Phone Subscriber Number Group Number Insured Name Patient Relationship to Insured Coverage Start Date Coverage End Date BCBS OUT OF STATE [address] [place] [address] [id number] Vishal Hazel Self - patient is the insured
--- OUTSIDE RECORDS SUMMARY | 2025-07-08 09:53 | XMS_ITS | Encounter Summary ---
Author Organization [facility] Address [address] [place] [address] [place] [address] Care Team Providers Care Developer Support Engineer Name Role Phone Dirk Jeffers DO Primary Care Provider [phone] Encounter Details DateTypeDepartmentCare Team (Latest Contact Info)Rshqtmwuudf51/03/2025Plan of Care Documentation [facility] [address] [place] [address] Social History Tobacco UseTypesPacks/DayYears UsedDateSmoking Tobacco: NeverSmokeless Tobacco: CurrentChewAlcohol UseStandard Drinks/WeekCommentsYes0 (1 standard drink = 0.6 oz pure alcohol)Sex and Gender InformationValueDate RecordedSex Assigned at BirthNot on fileLegal QokMlsk3310/08/2022 6:42 PM EDTGender IdentityNot on file Sexual OrientationNot on filedocumented as of this encounter Plan of Treatment DateTypeDepartmentCare Team (Latest Contact Info)Ycluvvojkgg96/12/2026 10:45 AM ESTOffice Visit [facility] [address] [facility] [place] [address] Jan Park DO [address] [facility] [place] [address] documented as of this encounter Visit Diagnoses Not on filedocumented in this encounter Care Teams Team MemberRelationshipSpecialtyStart DateEnd Date Dirk Jeffers DO [address] [place] [address] PCP - GeneralInternal Medicine03/06/25documented as of this encounter
--- OUTSIDE RECORDS SUMMARY | 2025-07-08 09:53 | XMS_ITS | Encounter Summary ---
Author Organization [facility] Address [address] [place] [address] Care Team Providers Care Associate Professor Of Philosophy Name Role Phone Dirk Jeffers DO Primary Care Provider [phone] Encounter Details DateTypeDepartmentCare Team (Latest Contact Info)Uuhtgunsflu33/03/2025amboo flowsheet [facility] [address] [address] [place] [address] Nathalie Ybarra PT Social History Tobacco UseTypesPacks/DayYears UsedDateSmoking Tobacco: NeverSmokeless Tobacco: CurrentChewAlcohol UseStandard Drinks/WeekCommentsYes0 (1 standard drink = 0.6 oz pure alcohol)Sex and Gender InformationValueDate RecordedSex Assigned at BirthNot on fileLegal YfdZebu8510/08/2022 6:42 PM EDTGender IdentityNot on file Sexual OrientationNot on filedocumented as of this encounter Plan of Treatment DateTypeDepartmentCare Team (Latest Contact Info)Mwpagbbxslg80/12/2026 10:45 AM ESTOffice Visit [facility] [address] [facility] [place] [place] [address] Jan Park DO [address] [place], [place] [phone] documented as of this encounter Visit Diagnoses Not on filedocumented in this encounter Care Teams Team MemberRelationshipSpecialtyStart DateEnd Date Dirk Jeffers DO [address] [facility] [place] [address] PCP - GeneralInternal Medicine03/06/25documented as of this encounter
--- OUTSIDE RECORDS SUMMARY | 2025-07-08 09:53 | XMS_ITS | Clinical Summary ---
Author Organization [facility] Address [address] [place] [address] Care Team Providers Care Railroad Police Name Role Phone Dirk Jeffers Primary Care Provider [phone] Allergies No known active allergies Medications MedicationSigDispense QuantityRefillsLast FilledStart DateEnd DateStatus lidocaine (Lidoderm) 5 % patch APPLY 1 PATCH TOPICALLY EVERY 24 HRS NEEDED FOR PAIN *LEAVE ON MOST PAINFUL AREA FOR UP TO 12 HRS5Active meloxicam (Mobic) 15 MG tablet TAKE 1 TABLET BY MOUTH ONCE EVERYDAY WITH FOODActive Misc Natural Products (OSTEO BI-FLEX ADV DOUBLE ST PO) Take by mouthActive Active Problems No known active problems Encounters DateTypeDepartmentCare RrbcAwhvvucuzik31/12/2025Telephone [facility] [address] [facility] [place] [address] Jan Park, DO Pre-Surgery Check In07/07/2025Orders Only [facility] [address] [place] [address] Jan Park, DO Aftercare following left hip joint replacement surgery (Primary Dx)06/28/2025 4:00 PM ESTEvaluation [facility] [address] [place] [address] Nathalie Ybarra, PT Arthritis of left hip (Primary Dx)06/28/2025Plan of Care Documentation [facility] [address] [place] [address] 06/28/2025amboo flowsheet [facility] [address] [place] [address] Nathalie Ybarra, PT 06/28/20256155Gjgvvi76/26/2025Telephone [facility] [address] [place] [address] Jan Park, DO Off Work Forms06/20/2025Telephone [facility] [address] [place] [address] Jan Park, DO Ortho 360 Qtqzsgk6006/16/2025 8:00 AM ESTOffice Visit [facility] [address] [place] [address] Jan Park, DO Primary osteoarthritis of left hip (Primary Dx); Left hip pain06/16/2025linisync Result Encounter [facility] External Department Unsolicited Jan Park, DO 06/16/2025linisync Result Encounter [facility] External Department Unsolicited Jan Park, DO 06/16/2025amboo flowsheet [facility] [address] [place] [address] Jan Park, DO 06/16/20255748Eelqxt44/06/2025Orders Only [facility] [address] [place] [address] [facility] [place], [place] Preoperative zxvqmum9705/19/2025 9:00 AM EDTOffice Visit [facility] [address] [place] [address] Jan Park, DO Primary osteoarthritis of left hip (Primary Dx); Left hip pain; Chewing tobacco nicotine dependence without kbwgdiunyeda40/24/2025amboo flowsheet [facility] [address] [place] [address] Jan Park, DO 05/19/20255962Wkoaar14/15/2025 1:00 PM EDTOffice Visit [facility] [address] [place] [address] Adiel Arce PA 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 (Primary Dx)04/10/2025amboo flowsheet [facility] [address] [place] [address] Adiel Arce PA 04/10/2025Travelfrom Last 3 Months Family History Medical HistoryRelationNameCommentsCancerFatherDiabetesFatherDiabetesMother RelationNameStatusCommentsFatherDeceasedMotherDeceased Social History Tobacco UseTypesPacks/DayYears UsedDateSmoking Tobacco: NeverSmokeless Tobacco: CurrentChew Tobacco Cessation:Ready to Q uit: Not Asked; Counseling Given: Not Answered Alcohol UseStandard Drinks/WeekCommentsYes0 (1 standard drink = 0.6 oz pure alcohol)Sex and Gender InformationValueDate RecordedSex Assigned at BirthNot on fileLegal ZzaBxtc9310/08/2022 6:42 PM EDTGender IdentityNot on fileSexual OrientationNot on file Last Filed Vital Signs Vital SignReadingTime TakenCommentsBlood Pressure--Pulse--Temperature-- Respiratory Rate--Oxygen Saturation--Inhaled Oxygen Concentration--Qofbfe65.2 kg (212 lb)06/16/2025 8:02 AM LVHZgnoya595.7 cm (5' 8 )06/16/2025 8:02 AM ESTBody Mass Index32.23108/16/2024 8:02 AM EST Plan of Treatment DateTypeDepartmentCare Team (Latest Contact Info)Ilmcgqffaay88/12/2026 10:45 AM ESTOffice Visit [facility] [address] [place] [address] Jan Park DO [address] [place] [address] Procedures Procedure NamePriorityDate/TimeAssociated DiagnosisCommentsCT LOWER EXTREMITY W/O CONTRAST LEFT06/16/2025 10:27 AM EST UA WITH CULT DDIFQsfycgq40/21/2025 9:57 AM EST UA WITH CULT RFLX RKDrekxqd78/21/2025 9:57 AM EST from Last 3 Months Results * CT LOWER EXTREMITY W/O CONTRAST LEFT (06/16/2025 10:27 AM EST)Anatomical RegionLateralityModalityOtherSpecimen (Source)Anatomical Location / Laterality Collection Method / VolumeCollection TimeReceived Time06/16/2025 10:27 AM EST Narrative 06/16/2025 1:45 PM EST Exam Date/Time: 06/16/2025 10:39 EST Reason for Exam: LEFT HIP OA Report Impression: Left hip OA. CT lower extremity without intravenous contrast medium. History: ??Left hip OA.. Technical factors: CT imaging of the lower extremities were obtained and formatted as 2 mm contiguous axial images through the knees, and 1 mm contiguous axial images through the hips. Sagittal coronal reconstruction through the hips were obtained during postprocessing. Comparison: ??None. Findings: Imaging left hip shows narrowing of left hip joint, greatest medially, with osteophyte formation identified within left mid acetabulum, and inferior aspect of left femoral head. Mild to moderate narrowing right hip joint identified. Axial images through the knees show no fracture, dislocation, or bone lesion. Mild narrowing patellofemoral compartments bilaterally with osteophyte formation bilateral medial medial aspect of patella. All CT scans at this facility use dose modulation, iterative reconstruction, and/or weight based dosing when appropriate to reduce radiation dose to as low as reasonably achievable. Technical Comments: Ordering Provider: Jan Park FINAL REPORT Dictated: ??06/16/2025 1:42 pm ? Dirk Starks MD Signed (Electronic Signature): ??06/16/2025 1:42 pm Signed by: ??Dirk Starsk MD Transcribed by: ??DP ? Technologist: ??SB Procedure Note Radiology, Radiologist, - 06/16/2025 Exam Date/Time: 06/16/2025 10:39 EST Reason for Exam: LEFT HIP OA Report Impression: Left hip OA. CT lower extremity without intravenous contrast medium. History: Left hip OA.. Technical factors: CT imaging of the lower extremities were obtained and formatted as 2 mm contiguous axial images through the knees, and 1 mm contiguous axialimages through the hips. Sagittal coronal reconstruction through the hips wereobtained during postprocessing. Comparison: None. Findings: Imaging left hip shows narrowing of left hip joint, greatest medially,with osteophyte formation identified within left mid acetabulum, and inferioraspect of left femoral head. Mild to moderate narrowing right hip joint identified. Axial images through the knees show no fracture, dislocation, or bonelesion. Mild narrowing patellofemoral compartments bilaterally with osteophyteformation bilateral medial medial aspect of patella. All CT scans at this facility use dose modulation, iterativereconstruction, and/or weight based dosing when appropriate to reduce radiation dose to as low as reasonably achievable. Technical Comments: Ordering Provider: Jan Park FINAL REPORT Dictated: 06/16/2025 1:42 pm Dirk Starks MD Signed (Electronic Signature): 06/16/2025 1:42 pm Signed by: Dirk Starks MD Transcribed by: REMI Technologist: VINCENZO Authorizing ProviderResult TypeResult StatusDavid A Pocos DOCLINISYNC IMAGING Final Result * UA WITH CULT RFLX SP (06/16/2025 9:57 AM EST)ComponentValueRef RangeTest MethodAnalysis TimePerformed AtPathologist [facility] UA SPEC DESCClean CatchFTMCSpecimen (Source)Anatomical Location / LateralityCollection Method / VolumeCollection TimeReceived SvelUlofr63/21/2025 9:57 AM EST06/16/2025 9:57 AM EST Narrative CLINISYNC - 06/16/2025 9:57 AM EST Original Ordering Provider: DO Jan Park Authorizing ProviderResult TypeResult StatusDavid A Pocos DOLAB BLOOD ORDERABLES Final ResultPerforming OrganizationAddressCity/State/ZIP CodePhone Number [facility]AT[facility] * (ABNORMAL) UA WITH CULT RFLX (06/16/2025 9:57 AM EST)ComponentValueRef Range Test MethodAnalysis TimePerformed AtPathologist [facility] UA COLOR Colorless(A)YellowFTComment:Microscopic readings are only performed on those samples that meet specific criteria set forth by [facility] UA CLARITYClearClearFTASCENSION MACOMB UA SPEC GRAV1.0081.005 - 1.030 [facility] UA PH5.55.0 - 9.0[facility] UA PROTEINNegativeNegative mg/dLBRIGHTON [facility]OSPITAL UA GLUCOSENegativeNegative mg/dLBRIGHTON HOSPITAL UA KETONESNegativeNegative mg/dLBRIGHTON [facility]OSPITAL UA BILINegativeNegative mg/dLBRIGHTON HOSPITAL UA BLOODNegativeNegative mg/dLBRIGHTON [facility]OSPITAL UA NITRITENegativeNegative mg/dLBRIGHTON HOSPITAL UA UROBILINOGENNegativeNegative mg/dL [facility] UA LEUK ESTNegativeNegative CD:[id number] (Source) Anatomical Location / LateralityCollection Method / VolumeCollection Time Received RzyeMcdwh88/21/2025 9:57 AM EST06/16/2025 11:24 AM EST Narrative CLINISYNC - 06/16/2025 11:48 AM EST Added by Discern Expert Original Ordering Provider: DO Jan Park Authorizing ProviderResult TypeResult StatusDavid A Pocos DOLAB BLOOD ORDERABLES Final ResultPerforming OrganizationAddressCity/State/ZIP CodePhone Number [facility] from Last 3 Months Insurance * Guarantor: Vishal Hazel AAccount TypeRelation to PatientDate of BirthPhone Billing AddressPersonal/RcfpvwAlgr1970 [facility] [address] [place] [address] Care Teams Team MemberRelationshipSpecialtyStart DateEnd Date Dirk Jeffers DO [address] [place] [address] PCP - GeneralInternal Medicine03/06/25
[2025-07-08 10:34] LABS: Cholesterol 240 mg/dL (<=200); HDL Cholesterol 93 mg/dL (40-60); Triglycerides 64 mg/dL (<=150); VLDL CHOLESTEROL 12.8 mg/dL
== END 2025-07-08 09:49 | disposition home or self-care (01) ==
PROVIDERS: PCP Internal Medicine; Visit Provider Internal Medicine
DX: Z00.00 Encounter for general adult medical examination without abnormal findings (principal); Z12.5 Encounter for screening for malignant neoplasm of prostate
CPT/HCPCS: 36415; 80061; G0103